=== PATIENT | male | born 1965 | race African-American/Black ===

== ENCOUNTER 2016-05-22 13:02 | Inpatient (IN) | payer OTHER ==
[2016-05-22] VITALS (8 sets, daily range): BP systolic 129–159; BP diastolic 82–97; PULSE 20–94; RESP 14–24; TEMP 98.2–99.6; O2SAT 93–98
[~2016-05-22] VITALS: Ht 177.8 cm; Wt 96.0 kg
[2016-05-22] MEDS ORDERED: SODIUM CHLOR 0.9% 1000 ML INJ 1,000 ML IV SCH (13:29)
--- NOTE | 2016-05-22 13:29 | PD ---
HPI Chief Complaint: GI Complaint Time Seen by Provider: 13:28 Travel History International Travel<30 days: No Contact w/Intl Traveler<30days: No Traveled to known affect area: No History of Present Illness HPI 50-year-old Afro-[place]ese male coming in with 3 day history of right upper quadrant pain, cramping, nausea, vomiting, but denies fever, chills, or diarrhea. Patient still has his gallbladder but denies hepatitis or pancreatitis in the past. Patient does drink 2 to 3 beers occasionally, but is not a regular drinker. Patient has had abdominal surgery for umbilical hernia only. He still has his gallbladder and appendix. Patient denies chest pain or shortness of breath. No cough or wheezing. Pain is localized to the right upper quadrant is a 10 out of 10 at this time. Patient states she's tried eat some Jell-O but nothing stays down and pain is worse after eating. He denies blood in his emesis. He states his urine is darker than normal. He is not having regular bowel movements in the last 2 days. Patient states he's had attacks like this in the past, and they usually last 2- 3 days and then past. Patient states he's had endoscopies, colonoscopies, and CT scans in the past. Patient states he's been evaluated by a GI specialist when he was living in [place]. No specific explanation has been found in the past. Patient states no known drug allergies. [facility] Social History Alcohol Use: Yes Tobacco Use: Yes Substance Use: No Allergies-Medications (Allergen,Severity, Reaction): Coded Allergies: No Known Allergies (Unverified , 05/22/16) Review of Systems Except as stated in HPI: all other systems reviewed are Neg General / Constitutional: Positive: Chills, No: Fever Eyes: No: Visual changes HENT: No: Headaches Cardiovascular: No: Chest Pain or Discomfort Respiratory: No: Shortness of Breath Gastrointestinal: Positive: Nausea, Vomiting, Diarrhea, Abdominal Pain, Loss of Appetite (see history present illness.), No: Hematemesis, Hematochezia, Constipation, Changes in Bowel Habits, Indigestion, Dysphagia Genitourinary: No: Dysuria Musculoskeletal: No: Pain Skin: No Rash Neurologic: No: Weakness Psychiatric: No: Depression Endocrine: No: Polydipsia Hematologic/Lymphatic: No: Easy Bruising Physical Exam Narrative GENERAL: Patient is in moderate to severe distress, holding his right upper quadrant and writhing on the bed. SKIN: Warm and dry. Normal color. Normal turgor. No diaphoresis. HEAD: Atraumatic. Normocephalic. EYES: Pupils equal and round. No scleral icterus. No injection or drainage. ENT: No nasal bleeding or discharge. Mucous membranes pink and moist. Patient is edentulous, and pharynx is normal. Airway is patent. NECK: Trachea midline. Neck is supple nontender. CARDIOVASCULAR: Regular rate and rhythm. No murmurs gallops or rubs. RESPIRATORY: No accessory muscle use. Clear to auscultation. Breath sounds equal bilaterally. GASTROINTESTINAL: Abdomen soft, patient is guarding in the right upper quadrant with moderate to severe tenderness with palpation and percussion., nondistended. Hepatic and splenic margins not palpable. No CVA tenderness is noted. MUSCULOSKELETAL: Extremities without clubbing, cyanosis, or edema. No obvious deformities. NEUROLOGICAL: Awake and alert. No obvious cranial nerve deficits. Motor grossly within normal limits. Five out of 5 muscle strength in the arms and legs. Normal speech. PSYCHIATRIC: Appropriate mood and affect; insight and judgment normal. Data Data Last Documented VS Vital Signs Date Time Temp Pulse Resp B/P Pulse Ox O2 Delivery O2 Flow Rate FiO2 05/22/16 16:00 72 15 137/85 95 Room Air 05/22/16 13:58 2 05/22/16 13:03 98.2 Orders Complete Blood Count With Diff (05/22/16 13:29) Comprehensive Metabolic Panel (05/22/16 13:29) Lipase (05/22/16 13:29) Lactic Acid (05/22/16 13:29) Prothrombin Time / Inr (Pt) (05/22/16 13:29) Act Partial Throm Time (Ptt) (05/22/16 13:29) Urinalysis - C+S If Indicated (05/22/16 13:29) Iv Access Insert/Monitor (05/22/16 13:29) Ecg Monitoring (05/22/16 13:29) Oximetry (05/22/16 13:29) NPO (05/22/16 13:29) Morphine Inj (Morphine Inj) (05/22/16 13:30) Ondansetron Inj (Zofran Inj) (05/22/16 13:30) Sodium Chlor 0.9% 1000 Ml Inj (Ns 1000 M (05/22/16 13:29) Sodium Chloride 0.9% Flush (Ns Flush) (05/22/16 13:30) Electrocardiogram (05/22/16 13:29) Ckmb (Isoenzyme) Profile (05/22/16 15:38) Magnesium (Mg) (05/22/16 15:38) Troponin I (05/22/16 15:38) Us Abdomen Gallbladder (05/22/16 15:41) Sodium Chlor 0.9% 1000 Ml Inj (Ns 1000 M (05/22/16 16:00) CKMB (05/22/16 14:30) CKMB% (05/22/16 14:30) Ct Abd/Pel W/O Iv Contrast (05/22/16 16:32) Morphine Inj (Morphine Inj) (05/22/16 17:45) Admit Order (Ed Use Only) (05/22/16 17:52) Labs Laboratory Tests Test 05/22/16 05/22/16 13:42 14:30 White Blood Count 15.0 TH/MM3 Red Blood Count 6.21 MIL/MM3 Hemoglobin 17.1 GM/DL Hematocrit 50.5 % Mean Corpuscular Volume 81.2 FL Mean Corpuscular Hemoglobin 27.6 PG Mean Corpuscular Hemoglobin 33.9 % Concent Red Cell Distribution Width 15.5 % Platelet Count 329 TH/MM3 Mean Platelet Volume 7.7 FL Neutrophils (%) (Auto) 84.2 % Lymphocytes (%) (Auto) 8.6 % Monocytes (%) (Auto) 6.7 % Eosinophils (%) (Auto) 0.1 % Basophils (%) (Auto) 0.4 % Neutrophils # (Auto) 12.6 TH/MM3 Lymphocytes # (Auto) 1.3 TH/MM3 Monocytes # (Auto) 1.0 TH/MM3 Eosinophils # (Auto) 0.0 TH/MM3 Basophils # (Auto) 0.1 TH/MM3 CBC Comment DIFF FINAL Differential Comment Lactic Acid Level 1.6 mmol/L Prothrombin Time 11.9 SEC Prothromb Time International 1.1 RATIO Ratio Activated Partial 27.8 SEC Thromboplast Time Sodium Level 133 MEQ/L Potassium Level 5.1 MEQ/L Chloride Level 92 MEQ/L Carbon Dioxide Level 33.8 MEQ/L Anion Gap 7 MEQ/L Blood Urea Nitrogen 40 MG/DL Creatinine 2.59 MG/DL Estimat Glomerular Filtration 32 ML/MIN Rate Random Glucose 104 MG/DL Calcium Level 9.2 MG/DL Magnesium Level 2.6 MG/DL Total Bilirubin 0.7 MG/DL Aspartate Amino Transf 31 U/L (AST/SGOT) Alanine Aminotransferase 28 U/L (ALT/SGPT) Alkaline Phosphatase 90 U/L Total Creatine Kinase 533 U/L Creatine Kinase MB 1.5 NG/ML Creatine Kinase MB % 0.3 % Troponin I LESS THAN 0.02 NG/ML Total Protein 8.5 GM/DL Albumin 4.1 GM/DL Lipase 195 U/L MDM Medical Decision Making Medical Screen Exam Complete: Yes Emergency Medical Condition: Yes Differential Diagnosis Acute right upper quadrant pain. Hepatitis. Pancreatitis. Acute cholecystitis. Renal colic. Small bowel obstruction. Narrative Course Patient is in pain but medically stable at time of exam. EKG is obtained. EKG shows sinus rhythm with sinus arrhythmia. Patient is nonspecific ST T wave abnormalities. This is reviewed with Dr. Kilgore. This is a non-STEMI. We do not have other EKG to compare. This may be his baseline. IV access is obtained patient is given 4 mg morphine IV as well as 4 mg Zofran IV. Labs ordered including CBC, CMP, lactic acid, lipase, and urinalysis. Patient is given thousand mL normal saline bolus. CT of the abdomen is ordered with IV contrast but without oral contrast. 1400 hrs., the patient was reevaluated. Pain is improved, down to a 3 out of 10. Labs and CT still pending. Labs show leukocytosis of 15,000 with a right shift. CMP shows normal lactic acid of 1.6, however sodium is 133, chloride is 92, BUN is 40, creatinine is 2.59. Patient is discussed with Dr. Kilgore who recommends CT of the abdomen without contrast, as well as ultrasound of the gallbladder. Ultrasound shows sludge in the gallbladder without acute findings otherwise per radiologist. CT of the abdomen shows umbilical hernia without signs of obstruction. No other acute findings noted per radiologist. 1735 hrs. Call was placed to the residence for admission for his increased creatinine and abdominal pain. It is notable that the patient has not produced urine since arriving at the emergency department. 1750 hrs. patient discussed with the residents who admit the patient. Diagnosis Primary Impression: Elevated serum creatinine Additional Impressions: Nausea & vomiting Qualified Code: R11.2 - Non-intractable vomiting with nausea, unspecified vomiting type Abdominal pain Qualified Code: R10.11 - Right upper quadrant abdominal pain Admitting Information Admitting Physician Requests: Observation Condition: Stable Catrachito Vargas May 22, 2016 13:29
[2016-05-22] MEDS ORDERED: MORPHINE SULFATE 4 MG/ML INJ IV PUSH ONE (13:30)
[2016-05-22] MEDS ORDERED: ONDANSETRON HCL 4 MG/2 ML VIAL IVP ONE (13:30)
[2016-05-22] MEDS ORDERED: SODIUM CHLORIDE 0.9% FLUSH 5 ML FLUSH IVF PRN (13:30)
[2016-05-22 13:57] LABS: AUTOMATED NEUTROPHIL # 12.6 TH/MM3 (1.8-7.7); BASOPHIL # 0.1 TH/MM3 (0-0.2); BASOPHIL % 0.4 % (0.0-2.0); EOSINOPHIL % 0.1 % (0.0-4.0); HEMATOCRIT 50.5 % (39.0-51.0); HEMO FLAGS DIFF FINAL; LYMPH % 8.6 % (9.0-44.0); LYMPHOCYTE # 1.3 TH/MM3 (1.0-4.8); MEAN CELL VOLUME 81.2 FL (80.0-100.0); MEAN CORPUSCULAR HEMOGLOBIN 27.6 PG (27.0-34.0); MEAN CORPUSCULAR HGB CONC 33.9 % (32.0-36.0); MONO % 6.7 % (0.0-8.0); NEUT % 84.2 % (16.0-70.0); PLATELET COUNT 329 TH/MM3 (150-450); RED BLOOD COUNT 6.21 MIL/MM3 (4.50-5.90); RED CELL DISTRIBUTION WIDTH 15.5 % (11.6-17.2)
[2016-05-22 14:13] LABS: TOTAL BILIRUBIN ADULT 0.7 MG/DL (0.2-1.0)
[2016-05-22 15:09] LABS: APTT (PATIENT) 27.8 SEC (24.3-30.1); INTERNATIONAL NORMALIZED RATIO 1.1 RATIO; PROTHROMBIN TIME - PATIENT 11.9 SEC (9.8-11.6)
[2016-05-22 15:32] LABS: ALT (GPT) 28 U/L (12-78); ANION GAP 7 MEQ/L (5-15); AST (GOT) 31 U/L (15-37); BICARBONATE 33.8 MEQ/L (21.0-32.0); BLOOD UREA NITROGEN 40 MG/DL (7-18); CHLORIDE 92 MEQ/L (98-107); GLOMERULAR FILTRATION RATE 32 ML/MIN (>89); POTASSIUM 5.1 MEQ/L (3.5-5.1); SODIUM (NA) 133 MEQ/L (136-145)
[2016-05-22 15:33] LABS: ALKALINE PHOSPHATASE 90 U/L (45-117)
[2016-05-22] MEDS ORDERED: SODIUM CHLOR 0.9% 1000 ML INJ 1,000 ML IV ONE (16:00)
[2016-05-22 16:31] LABS: CREATINE KINASE 533 U/L (39-308); MAGNESIUM 2.6 MG/DL (1.5-2.5)
[2016-05-22 16:44] LABS: CKMB 1.5 NG/ML (0.5-3.6)
--- NOTE | 2016-05-22 17:14 | RADRPT ---
EXAM DATE/TIME: 05/22/2016 16:14 [facility] COMPARISON: No previous studies available for comparison. INDICATIONS : Nausea and vomiting. MEDICAL HISTORY : Hypertension. SURGICAL HISTORY : Hernia repair. ENCOUNTER: Initial ACUITY: 2 days PAIN SCORE: 8/10 LOCATION: Right upper quadrant MEASUREMENTS: LIVER: 16.8 cm length COMMON DUCT: 5 mm RIGHT KIDNEY: 11.1 x 5.6 x 4.5 cm FINDINGS: LIVER: Normal echotexture without focal lesion or ductal dilatation. COMMON DUCT: No intraluminal mass or stone visualized. GALLBLADDER: Small amount of sludge in the gallbladder. PANCREAS: The visualized portions are within normal limits. RIGHT KIDNEY: No evidence of hydronephrosis, stone, or mass. CONCLUSION: 1. Gallbladder sludge without biliary ductal dilatation. No free fluid. Jeff Vera MD on May 22, 2016 at 17:11 Board Certified Radiologist. This report was verified electronically.
--- NOTE | 2016-05-22 17:24 | RADRPT ---
EXAM DATE/TIME: 05/22/2016 16:52 [facility] COMPARISON: No previous studies available for comparison. INDICATIONS : Abdomen pain. ORAL CONTRAST: No oral contrast ingested. RADIATION DOSE: 9.96 CTDIvol (mGy) MEDICAL HISTORY : Hypertension. SURGICAL HISTORY : Hernia repair. ENCOUNTER: Initial ACUITY: 1 day PAIN SCALE: 5/10 LOCATION: Bilateral abdomen. TECHNIQUE: Volumetric scanning of the abdomen and pelvis was performed. Using automated exposure control and ad justment of the mA and/or kV according to patient size, radiation dose was kept as low as reasonably achievable to obtain optimal diagnostic quality images. FINDINGS: There is linear atelectasis or scarring at both lung bases. No significant abnormalities in the liver , spleen, adrenals, kidneys or pancreas. No free fluid. No bowel obstruction. No adenopathy. There is a fat containing umbilical hernia measuring 3.5 cm in diameter. No acute bony abnormalities. CONCLUSION: 1. No acute findings. Fat containing umbilical hernia measuring 3.5 cm in diameter. Linear atelectasi s or scarring at the lung bases. Jeff Vera MD on May 22, 2016 at 17:18 Board Certified Radiologist. This report was verified electronically.
[2016-05-22] MEDS ORDERED: MORPHINE SULFATE 4 MG/ML INJ IM ONE (17:45)
[2016-05-22] MEDS ORDERED: NALOXONE HCL 0.4 MG/ML AMP IV PRN (18:15)
[2016-05-22] MEDS ORDERED: SODIUM CHLORIDE 0.9% FLUSH 5 ML FLUSH FLUSH PRN (18:15)
[2016-05-22] MEDS ORDERED: ACETAMINOPHEN/HYDROcodone 325 MG/5 MG TAB PO PRN ×2 (18:15)
[2016-05-22] MEDS ORDERED: ACETAMINOPHEN 325 MG TAB PO PRN (18:15)
[2016-05-22] MEDS ORDERED: ONDANSETRON HCL 4 MG/2 ML VIAL IVP PRN (18:15)
[2016-05-22] MEDS: SODIUM CHLOR 0.9% 1000 ML INJ 1,000 ML IV SCH (18:30)
--- NOTE | 2016-05-22 18:37 | HHI.HP ---
[facility] Service Family Medicine Primary Care Physician [facility] Admission Diagnosis Elevated Creatinine/Nausea/Vomiting/R upper Abd pain Diagnoses: International Travel<30 Days: No Contact w/Intl Traveler<30days: No Known Affected Area: No History of Present Illness Patient is a 50-year-old male with past medical history significant for COPD and hypertension presenting due to abdominal pain, intractable nausea and vomiting. Patient reports that he began to experience abdominal pain on Monday located in the right upper quadrant. Pain is is terminated, 10 out of 10 in intensity with no radiation. He describes the pain as cramping, muscle spasms. Pain was only relieved by pain medication in the ED , and made worse by vomiting. He believes that vomiting and abdominal pain improves when he takes a hot shower. Vomit has been light yellow in color with occasional streaks of blood. He denies gross bloody appearance of vomit. Since Monday he has not been able to tolerate anything PO, anything he would eat or drink would cause him to vomit. He is not sure if any types of food made the pain worse. He has tried eating bland soft foods and this has not helped. He had a soft bowel movement yesterday. Denies constipation, diarrhea. The last time he urinated was yesterday. He has had similar episodes of pain in the past but they are usually associated with eating. The onset of this pain was different; however, the symptoms are the same. He has been evaluated for this same type of pain in several different hospitals in different states. He denies ever being given a specific diagnosis. He denies history of liver disease, gallbladder disease, kidney disease. He reports being previously told that he has a hiatal hernia as well as an ulcer. (Landy Harris MD R2) Review of Systems Constitutional: COMPLAINS OF: Fever, Chills Eyes: COMPLAINS OF: Vision loss Ears, nose, mouth, throat: COMPLAINS OF: Throat pain (sore throat with vomiting ) Respiratory: DENIES: Cough, Shortness of breath Cardiovascular: DENIES: Chest pain Gastrointestinal: DENIES: Bloody stools, Constipation Genitourinary: DENIES: Urinary frequency Musculoskeletal: COMPLAINS OF: Muscle aches Integumentary: DENIES: Pruritus, Rash Neurologic: COMPLAINS OF: Headache (Landy Harris MD R2) Past Family Social History Past Medical History Asthma HTN Past Surgical History Umbilical hernia operations x2 Skull fracture repair Reported Medications HCTZ Proventil HFA inhaler (Landy Harris MD R2) Allergies: Coded Allergies: No Known Allergies (Unverified , 05/22/16) Family History Mother: CHF, 60s Father: Unknown Social History Currently lives in [facility] in an apartment. Works in [employer]. Smokes 1PPD for 37 years. Alcohol 1 beer per day, denies withdrawal symptoms Marijuana about 2x per week. (Landy Harris MD R2) Physical Exam Vital Signs Vital Signs Date Time Temp Pulse Resp B/P Pulse Ox O2 Delivery O2 Flow Rate FiO2 05/22/16 17:56 99.6 74 14 134/86 96 Nasal Cannula 2 05/22/16 16:00 72 15 137/85 95 Room Air 05/22/16 13:58 93 24 135/87 96 Nasal Cannula 2 05/22/16 13:38 98 Room Air 05/22/16 13:34 17 05/22/16 13:03 98.2 94 20 159/97 96 Physical Exam GENERAL: This is a well-nourished, well-developed patient, in no apparent distress. Pt wearing Nasal canula, 2L. SKIN: No rashes, ecchymoses or lesions. Cool and dry. HEAD: Atraumatic. Normocephalic. No temporal or scalp tenderness. EYES: Pupils equal round and reactive. Extraocular motions intact. No scleral icterus. No injection or drainage. ENT: Nose without bleeding, purulent drainage or septal hematoma. Throat without erythema, tonsillar hypertrophy or exudate. Uvula midline. Airway patent. Pt with no teeth. NECK: Trachea midline. No JVD or lymphadenopathy. Supple, nontender, no meningeal signs. CARDIOVASCULAR: Regular rate and rhythm without murmurs, gallops, or rubs. RESPIRATORY: Clear to auscultation. Breath sounds equal bilaterally. Decreased breath sounds at lung bases. No wheezes, rales, or rhonchi. GASTROINTESTINAL: Abdomen soft, obese, nondistended. No hepato-splenomegaly, or palpable masses. No guarding. Pain with palpation of right upper and lower quadrants. Positive Rivera sign. Positive bowel sounds. MUSCULOSKELETAL: Extremities without clubbing, cyanosis, or edema. No joint tenderness, effusion, or edema noted. No calf tenderness. Negative Homans sign bilaterally. NEUROLOGICAL: Awake and alert. Cranial nerves II through XII intact. Motor and sensory grossly within normal limits. Five out of 5 muscle strength in all muscle groups. Normal speech. Laboratory Laboratory Tests Test 05/22/16 05/22/16 13:42 14:30 White Blood Count 15.0 Red Blood Count 6.21 Hemoglobin 17.1 Hematocrit 50.5 Mean Corpuscular Volume 81.2 Mean Corpuscular Hemoglobin 27.6 Mean Corpuscular Hemoglobin 33.9 Concent Red Cell Distribution Width 15.5 Platelet Count 329 Mean Platelet Volume 7.7 Neutrophils (%) (Auto) 84.2 Lymphocytes (%) (Auto) 8.6 Monocytes (%) (Auto) 6.7 Eosinophils (%) (Auto) 0.1 Basophils (%) (Auto) 0.4 Neutrophils # (Auto) 12.6 Lymphocytes # (Auto) 1.3 Monocytes # (Auto) 1.0 Eosinophils # (Auto) 0.0 Basophils # (Auto) 0.1 CBC Comment DIFF FINAL Differential Comment Lactic Acid Level 1.6 Prothrombin Time 11.9 Prothromb Time International 1.1 Ratio Activated Partial 27.8 Thromboplast Time Sodium Level 133 Potassium Level 5.1 Chloride Level 92 Carbon Dioxide Level 33.8 Anion Gap 7 Blood Urea Nitrogen 40 Creatinine 2.59 Estimat Glomerular Filtration 32 Rate Random Glucose 104 Calcium Level 9.2 Magnesium Level 2.6 Total Bilirubin 0.7 Aspartate Amino Transf 31 (AST/SGOT) Alanine Aminotransferase 28 (ALT/SGPT) Alkaline Phosphatase 90 Total Creatine Kinase 533 Creatine Kinase MB 1.5 Creatine Kinase MB % 0.3 Troponin I LESS THAN 0.02 Total Protein 8.5 Albumin 4.1 Lipase 195 (Landy Harris MD R2) Result Diagram: 05/22/16 1342 05/22/16 1430 Imaging Last 24 hours Impressions Abdomen/Pelvis CT 05/22/16 1632 Signed Impressions: Service Date/Time: Sunday, May 22, 2016 16:52 - CONCLUSION: 1. No acute findings. Fat containing umbilical hernia measuring 3.5 cm in diameter. Linear atelectasis or scarring at the lung bases. Jeff Vera MD Gall Bladder Ultrasound 05/22/16 1541 Signed Impressions: Service Date/Time: Sunday, May 22, 2016 16:14 - CONCLUSION: 1. Gallbladder sludge without biliary ductal dilatation. No free fluid. Jeff Vera MD (Landy Harris MD R2) Assessment and Plan Assessment and Plan Patient is a 50-year-old male with past medical history significant for COPD and hypertension presenting due to abdominal pain, intractable nausea and vomiting. Code Status Full Discussed Condition With sdw Dr. Miller (Landy Harris MD R2) Attending Attestation THIS CASE WAS DISCUSSED WITH THE RESIDENT PHYSICIANS. I HAVE REVIEWED THE RECORD AND AGREE WITH THE ABOVE NOTE AND PLAN OF CARE WAS DISCUSSED. I HAVE AUTHORIZED THE ORDER FOR ADMISSION TO AN IN-PATIENT STATUS. (Jordan Saini MD) Problem List: (1) Abdominal pain Status: Acute Plan: Patient with right-sided abdominal pain that has persisted since Monday. On exam patient with positive Rivera sign. On this occasion, pain is not associated with eating. In the past patient reports that similar episodes have been associated with eating. -HIDA scan ordered to evaluate for gallbladder dysmotility, no morphine to be administered 4 hours prior to the study Medications [place] 12 tabs prn pain 710, morphine prn breakthrough Zofran prn nausea or vomiting Protonix Imaging Abdominal CT scan: No acute findings, fat containing umbilical hernia measuring 3.5 cm in diameter. Linear atelectasis or scarring of the lung bases. Gallbladder ultrasound: Gallbladder sludge without biliary duct dilation. No free fluid (2) Elevated serum creatinine Status: Acute Plan: On admission creatinine elevated to 2.59. Patient denies prior history of kidney disease. Likely due to dehydration as patient reports being unable to tolerate eating or drinking for the past 3 days, and decreased urine output. History is also significant for marijuana use and possibly use of other illicit substances. -Fluids as below -UDS pending -UA ordered -Continue to monitor for improvement -Consider renal ultrasound if creatinine does not improve with IV fluids (3) Nausea & vomiting Status: Acute Plan: Patient reports intractable nausea and vomiting since Monday. He has not been able to tolerate anything po since this time. -See fluids below -Zofran PRN nausea or vomiting -Patient reports that he is hungry and would like to try to eat something, reassuring -Cyclic vomiting syndrome is very likely due to patient's regular use of marijuana. (4) Leukocytosis Status: Acute Plan: On admission patient with elevated white blood cell count of 15. Patient is afebrile and vital signs are stable. -UA ordered -No source of infection identified at this time -Consider chest x-ray -Continue to monitor (5) FEN/PPX Status: Acute Plan: Fluids: Patient received 1 L bolus 2 while in the ED, will continue fluids at 130 mls/hr Electrolytes: Sodium low at 133, see fluids above. Magnesium slightly elevated at 2.6. Continue to monitor and replete as needed. Nutrition: Heart healthy diet DVT PPX: Heparin GI PPX: Protonix Chronic conditions: Hypertension, hydrochlorothiazide 12.5 mg po daily Asthma, pro-air inhaler (Landy Harris MD R2) Problem Qualifiers (1) Abdominal pain: Qualified Code: R10.11 - Right upper quadrant abdominal pain (2) Nausea & vomiting: Qualified Code: R11.2 - Non-intractable vomiting with nausea, unspecified vomiting type Landy Harris MD R2 May 22, 2016 18:37 Jordan Saini MD May 23, 2016 16:09
[2016-05-22] MEDS: MORPHINE SULFATE 4 MG/ML INJ IV PUSH PRN ×2 (18:44→22:52)
[2016-05-22] MEDS: HEPARIN SODIUM - SQ 10,000 UNITS/ML VIAL SQ SCH (20:51)
[2016-05-22] MEDS: SODIUM CHLORIDE 0.9% FLUSH 5 ML FLUSH FLUSH SCH (20:51)
[2016-05-22] MEDS ORDERED: ALBUTEROL SULFATE 90 MCG/ACT HFA 8 GM INHALER INH PRN (22:30)
[2016-05-23] MEDS ORDERED: MORPHINE SULFATE 4 MG/ML INJ IV PUSH PRN (00:15)
[2016-05-23 01:52] VITALS: BP 129/88; PULSE 69; RESP 18; TEMP 97.8; O2SAT 93
[2016-05-23] MEDS: SODIUM CHLOR 0.9% 1000 ML INJ 1,000 ML IV SCH ×3 (03:11→18:38)
[2016-05-23 05:30] LABS: AUTOMATED NEUTROPHIL # 7.1 TH/MM3 (1.8-7.7); BASOPHIL % 0.3 % (0.0-2.0); EOSINOPHIL # 0.1 TH/MM3 (0-0.4); HEMATOCRIT 41.7 % (39.0-51.0); HEMO FLAGS DIFF FINAL; LYMPH % 22.5 % (9.0-44.0); LYMPHOCYTE # 2.5 TH/MM3 (1.0-4.8); MEAN CORPUSCULAR HEMOGLOBIN 27.3 PG (27.0-34.0); MEAN CORPUSCULAR HGB CONC 32.9 % (32.0-36.0); MONO % 11.9 % (0.0-8.0); NEUT % 64.3 % (16.0-70.0); PLATELET COUNT 270 TH/MM3 (150-450); RED BLOOD COUNT 5.03 MIL/MM3 (4.50-5.90); RED CELL DISTRIBUTION WIDTH 15.2 % (11.6-17.2); WHITE BLOOD COUNT 11.1 TH/MM3 (4.0-11.0)
[2016-05-23] MEDS: HEPARIN SODIUM - SQ 10,000 UNITS/ML VIAL SQ SCH ×2 (05:50→13:00)
[2016-05-23 06:02] LABS: BICARBONATE 32.5 MEQ/L (21.0-32.0)
[2016-05-23 06:13] LABS: POTASSIUM 2.8 MEQ/L (3.5-5.1)
[2016-05-23 06:15] VITALS: BP 114/75; PULSE 58; RESP 18; TEMP 97.7; O2SAT 94
[2016-05-23] MEDS ORDERED: POTASSIUM CHLORIDE 20 MEQ CONTROLLED RELEASE TAB PO ONE ×2 (06:30→12:30)
[2016-05-23 08:00] VITALS: BP 115/72; PULSE 59; RESP 20; TEMP 98.3; O2SAT 91
[2016-05-23] MEDS: SODIUM CHLORIDE 0.9% FLUSH 5 ML FLUSH FLUSH SCH (08:00)
[2016-05-23] MEDS ORDERED: CALCIUM CARBONATE 500 MG CHEWABLE TAB CHEW SCH (09:00)
[2016-05-23] MEDS ORDERED: PANTOPRAZOLE SOD 20 MG DELAYED RELEASE TAB PO SCH (09:00)
[2016-05-23] MEDS ORDERED: HYDROCHLOROTHIAZIDE 12.5 MG CAP PO SCH (09:00)
[2016-05-23 09:45] VITALS: O2SAT 92
[2016-05-23] MEDS ORDERED: SINCALIDE 5 MCG/5 ML VIAL IV ONE (11:11)
--- NOTE | 2016-05-23 11:52 | EKG ---
Date Performed: 05/22/2016 Time Performed: 13:31:27 PTAGE: 50 years EKG: Sinus rhythm WITH MARKED SINUS ARRHYTHMIA NONSPECIFIC ST & T-WAVE ABNORMALITY BORDERLINE ECG NO PREVIOUS TRACING DOCTOR: Newton Garland Interpretating Date/Time 05/23/2016 11:46:55
[2016-05-23 12:00] VITALS: BP 136/58; PULSE 55; RESP 20; TEMP 98.9; O2SAT 94
--- NOTE | 2016-05-23 13:11 | RADRPT ---
EXAM DATE/TIME: 05/23/2016 09:56 [facility] COMPARISON: No previous studies available for comparison. INDICATIONS : Right upper quadrant pain, nausea and vomiting for 3 days. DOSE: 4.2 mCi Tc99m Mebrofenin IV MEDICATION: 1.92 mcg Cholecystokinin IV; No symptomatic response. Cholecystokinin was administered by slow infusion over 8 minutes beginning at 60 minutes. MEDICAL HISTORY : Hypertension. SURGICAL HISTORY : Hernia repair. ENCOUNTER: Initial ACUITY: 3 days PAIN SCALE: 10/10 LOCATION: Right upper quadrant TECHNIQUE: Following the intravenous administration of radiotracer, dynamic sequential image were performed with continuous acquisition. Time-activity curves were generated. FINDINGS: There is prompt extraction of radiotracer with activity seen the common duct and small bowel in 20 m inutes. Gallbladder does appear at 30 minutes. With intravenous administration of CCK there is prompt emptying of the gallbladder with ejection frac tion of greater than 50%. CONCLUSION: Negative for cystic duct or common duct obstruction Yony Monzon MD FACR on May 23, 2016 at 13:08 Board Certified Radiologist. This report was verified electronically.
[2016-05-23 16:00] VITALS: BP 128/74; PULSE 77; RESP 20; TEMP 99.1; O2SAT 97
--- NOTE | 2016-05-23 16:08 | HHI.FPPN ---
Subjective Remarks No acute events overnight. Patient tolerated a meal yesterday evening without significant discomfort or nausea/vomiting. He had his HIDA scan today that came back normal, with normal gallbladder filling and gallbladder ejection fraction of greater than 50%. He is extremely hungry at this time and just ordered a diet, and is going to attempt to eat lunch right now. He feels that he is back to his baseline. Right now he denies any symptoms such as abdominal pain, denies nausea, denies vomiting, denies chest pain or palpitations. In summary this is a 50-year-old male presenting to the emergency department with abdominal pain and nausea/vomiting. Pain started 2 days prior to arrival in the emergency department and describes it as a sharp, stabbing pain in the right upper quadrant. He feels that it is a "cramping" sensation and that the only thing that made it better was pain medication in the emergency department. He did not associate this with eating or with food. He denies any fevers or chills. He denies any hematemesis. He denies any constipation or diarrhea. He denies any chest pain or palpitations. He states that he has a chronic history of abdominal pain that has been evaluated several times in the emergency department and several different hospitals with no clear-cut diagnosis. Past Medical History Asthma HTN Past Surgical History Umbilical hernia operations x2 Skull fracture repair Reported Medications HCTZ Proventil HFA inhaler Allergies: Coded Allergies: No Known Allergies (Unverified , 05/22/16) Family History Mother: CHF, 60s Father: Unknown Social History Currently lives in [facility] in an apartment. Works in [employer]. Smokes 1PPD for 37 years. Alcohol 1 beer per day, denies withdrawal symptoms Marijuana about 2x per week. Objective Vitals Vital Signs Date Time Temp Pulse Resp B/P Pulse Ox O2 Delivery O2 Flow Rate FiO2 05/23/16 12:00 98.9 55 20 136/58 94 05/23/16 09:45 92 05/23/16 08:00 98.3 59 20 115/72 91 05/23/16 06:15 97.7 58 18 114/75 94 05/23/16 01:52 97.8 69 18 129/88 93 05/22/16 20:44 98.2 64 18 148/82 93 05/22/16 20:26 65 18 129/88 95 Room Air 05/22/16 20:10 96 Nasal Cannula 2.00 05/22/16 17:56 99.6 74 14 134/86 96 Nasal Cannula 2 05/22/16 16:00 72 15 137/85 95 Room Air I/O 05/22/16 05/22/16 05/22/16 05/23/16 05/23/16 05/23/16 07:00 15:00 23:00 07:00 15:00 23:00 Intake Total 480 ml Balance 480 ml Intake Oral 480 ml Result Diagram: 05/23/16 0449 05/23/16 0449 Imaging Last 48 hours Impressions Hepatobiliary Scan Nuclear Medicine 05/23/16 1913 Signed Impressions: Service Date/Time: Monday, May 23, 2016 09:56 - CONCLUSION: Negative for cystic duct or common duct obstruction Yony Monzon MD FACR Abdomen/Pelvis CT 05/22/16 1632 Signed Impressions: Service Date/Time: Sunday, May 22, 2016 16:52 - CONCLUSION: 1. No acute findings. Fat containing umbilical hernia measuring 3.5 cm in diameter. Linear atelectasis or scarring at the lung bases. Jeff Vera MD Gall Bladder Ultrasound 05/22/16 1541 Signed Impressions: Service Date/Time: Sunday, May 22, 2016 16:14 - CONCLUSION: 1. Gallbladder sludge without biliary ductal dilatation. No free fluid. Jeff Vera MD Objective Remarks GENERAL: This is a well-nourished, well-developed patient, in no apparent distress. SKIN: No rashes, ecchymoses or lesions. Cool and dry. ENT: Throat without erythema, tonsillar hypertrophy or exudate. Uvula midline. Airway patent. Pt with no teeth. NECK: Trachea midline. No JVD or lymphadenopathy. Supple, nontender, no meningeal signs. CARDIOVASCULAR: Regular rate and rhythm without murmurs, gallops, or rubs. RESPIRATORY: Clear to auscultation. Breath sounds equal bilaterally. Decreased breath sounds at lung bases. No wheezes, rales, or rhonchi. GASTROINTESTINAL: Abdomen soft, obese, nondistended. No hepato-splenomegaly, or palpable masses. No guarding. Negative Rivera sign at this time MUSCULOSKELETAL: Extremities without clubbing, cyanosis, or edema. NEUROLOGICAL: Awake and alert. Normal speech. A/P Assessment and Plan Patient is a 50-year-old male with past medical history significant for COPD and hypertension presenting due to abdominal pain, intractable nausea and vomiting. Discharge Planning Likely discharge today if patient tolerates diet and potassium improves. Problem List: (1) Abdominal pain Status: Acute Plan: Chronic, intermittent abdominal pain with no clear etiology Pain controlled with pain medications including [place] and morphine Patient now tolerating a regular diet Continue Zofran as needed for nausea HIDA scan performed that showed no gallbladder or ductal obstruction with a gallbladder ejection fraction of greater than 50% Abdominal CT scan: No acute findings, fat containing umbilical hernia measuring 3.5 cm in diameter. Linear atelectasis or scarring of the lung bases. Gallbladder ultrasound: Gallbladder sludge without biliary duct dilation. No free fluid Lab work remarkable for a [employer] and hypokalemia LFTs within normal limits No evidence of infection or gallbladder obstruction (2) Elevated serum creatinine Status: Acute Plan: Likely prerenal with decreased oral intake and losses due to vomiting - Creatinine improved to 1.81 today with IV hydration - Continue hydration with oral intake improving Follow-up BMP as an outpatient (3) Nausea & vomiting Status: Acute Plan: Currently tolerating a regular diet without use of nausea or vomiting -Zofran PRN nausea or vomiting -Cyclic vomiting syndrome is very likely due to patient's regular use of marijuana. (4) Leukocytosis Status: Acute Plan: On admission patient with elevated white blood cell count of 15 - improved today to 11.1. Patient is afebrile and vital signs are stable. -UA negative for infection -No source of infection identified at this time (5) Hypokalemia Status: Acute Plan: Likely secondary to losses with vomiting Replenished with 40 mEq 2 oral potassium this morning Repeat BMP pending (6) FEN/PPX Status: Acute Plan: Fluids: Patient received 1 L bolus 2 while in the ED, will continue fluids at 130 mls/hr Electrolytes: Sodium low at 133, see fluids above. Magnesium slightly elevated at 2.6. Continue to monitor and replete as needed. Nutrition: Heart healthy diet DVT PPX: Heparin GI PPX: Protonix Chronic conditions: Hypertension, hydrochlorothiazide 12.5 mg po daily Asthma, pro-air inhaler Problem Qualifiers (1) Abdominal pain: Qualified Code: R10.11 - Right upper quadrant abdominal pain (2) Nausea & vomiting: Qualified Code: R11.2 - Non-intractable vomiting with nausea, unspecified vomiting type Jordan Saini MD May 23, 2016 16:08
[2016-05-23] MEDS ORDERED: ZOFR4TAB3 SL (17:00)
--- NOTE | 2016-05-23 17:01 | HHI.DCPOC ---
Discharge Care Plan Diagnosis: (1) Nausea & vomiting (2) Hypokalemia (3) Dehydration Goals to Promote Your Health * To prevent worsening of your condition and complications, avoid marijuana. Take medication as prescribed for nausea and/or vomiting. Take over the counter pain medication as needed without exceeding recommended dosage. * To maintain your health at the optimal level, please follow up with your primary care doctor. Directions to Meet Your Goals Take your medications as prescribed Follow your dietary instruction Follow activity as directed Keep your appointments as scheduled Take your immunizations and boosters as scheduled If your symptoms worsen call your PCP, if no PCP go to Urgent Care Center or Emergency Room Smoking is Dangerous to Your Health. Avoid second hand smoke Call the 24-hour hour crisis hotline for domestic abuse at Ramon Miller MD R1 May 23, 2016 17:01
[2016-05-23 18:58] LABS: BICARBONATE 35.2 MEQ/L (21.0-32.0); POTASSIUM 3.9 MEQ/L (3.5-5.1)
[2016-05-23] MEDS ORDERED: SODIUM BICARBONATE 650 MG TAB PO ONE (20:15)
== END 2016-05-23 22:18 | disposition home or self-care (01) | DRG 392 ==
LOC: NEPE 13:02 → NEDA 17:55 → NEPGCP 20:31 → OBSVTOIN 22:14
PROVIDERS: ADMIT Family Medicine; ATTEND Family Medicine
DX: R10.11 Right upper quadrant pain (principal); J44.9 Chronic obstructive pulmonary disease, unspecified; I10 Essential (primary) hypertension; J98.11 Atelectasis; E86.0 Dehydration; F12.90 Cannabis use, unspecified, uncomplicated; J45.909 Unspecified asthma, uncomplicated; E87.6 Hypokalemia; G43.A0 Cyclical vomiting, in migraine, not intractable; Z82.49 Family history of ischemic heart disease and other diseases of the circulatory system; Z72.0 Tobacco use
CPT/HCPCS: 74176; 76705; 78227; 80048; 80053; 82550; 82552; 83605; 83690; 83735; 84484; 85025; 85610; 85730; 93005; 96361; 96374; 96375; A9537; J1644; J2270; J2405; J2805; J7030

== ENCOUNTER 2016-07-13 20:38 | Emergency (ER) | payer OTHER ==
[~2016-07-13 20:38] MED LIST: ZOFR4TAB3 SL
[2016-07-13 20:40] VITALS: BP 130/81; PULSE 69; RESP 18; TEMP 99.1; O2SAT 97
[2016-07-13 22:43] LABS: AUTOMATED NEUTROPHIL # 10.4 TH/MM3 (1.8-7.7); BASOPHIL % 0.2 % (0.0-2.0); HEMATOCRIT 46.3 % (39.0-51.0); HEMO FLAGS DIFF FINAL; LYMPHOCYTE # 1.1 TH/MM3 (1.0-4.8); MEAN CELL VOLUME 82.8 FL (80.0-100.0); MEAN CORPUSCULAR HEMOGLOBIN 28.1 PG (27.0-34.0); MEAN CORPUSCULAR HGB CONC 33.9 % (32.0-36.0); MONO % 4.3 % (0.0-8.0); NEUT % 86.5 % (16.0-70.0); PLATELET COUNT 273 TH/MM3 (150-450); RED BLOOD COUNT 5.59 MIL/MM3 (4.50-5.90); RED CELL DISTRIBUTION WIDTH 15.2 % (11.6-17.2)
[2016-07-13 23:01] LABS: ALT (GPT) 25 U/L (12-78); ANION GAP 8 MEQ/L (5-15); AST (GOT) 12 U/L (15-37); BICARBONATE 29.8 MEQ/L (21.0-32.0); BLOOD UREA NITROGEN 18 MG/DL (7-18); CHLORIDE 103 MEQ/L (98-107); GLOMERULAR FILTRATION RATE 72 ML/MIN (>89); POTASSIUM 3.6 MEQ/L (3.5-5.1); SODIUM (NA) 141 MEQ/L (136-145)
[2016-07-13 23:03] LABS: ALKALINE PHOSPHATASE 86 U/L (45-117); TOTAL BILIRUBIN ADULT 0.4 MG/DL (0.2-1.0)
[2016-07-13 23:46] VITALS: BP 197/89; PULSE 46; RESP 20; O2SAT 99
[2016-07-13] MEDS ORDERED: HYDR12.57 PO (23:46)
[2016-07-14] MEDS ORDERED: HYDROmorphone HCL PF 1 MG/ML VIAL IM ONE (00:15)
[2016-07-14] MEDS ORDERED: ONDANSETRON ODT 4 MG TAB PO ONE (00:15)
--- NOTE | 2016-07-14 00:39 | PD ---
HPI Chief Complaint: GI Complaint Time Seen by Provider: 23:52 Travel History International Travel<30 days: No Contact w/Intl Traveler<30days: No Traveled to known affect area: No History of Present Illness HPI This is a 50-year-old male who has a history of cyclic vomiting and abdominal pain who presents to the emergency department with 2 days of abdominal pain described as cramping, intermittent, moderate severity associated with multiple episodes of vomiting. Patient reports this happens every couple of months. He was just admitted in May for the same symptoms. At that time he had a CT scan, ultrasound and HIDA scan all of which were reassuring. They don't know what causes his symptoms. He says he doesn't drink alcohol routinely. He does smoke marijuana from time to time. He denies any fevers or chills. He says his symptoms feel the same as they have in the past. PFSH Past Medical History Asthma: Yes Blood Disorders: No Heart Rhythm Problems: No Cancer: No Cardiovascular Problems: Yes High Cholesterol: No Chest Pain: No Congestive Heart Failure: No COPD: No Diminished Hearing: No Endocrine: No Gastrointestinal Disorders: Yes Genitourinary: No Hypertension: Yes Immune Disorder: No Musculoskeletal: No Neurologic: No Psychiatric: No Reproductive: No Respiratory: Yes Sleep Apnea: No Past Surgical History Abdominal Surgery: Yes (HERNIA REPAIR) Other Surgery: Yes Social History Alcohol Use: Yes Tobacco Use: Yes Substance Use: No Allergies-Medications (Allergen,Severity, Reaction): Coded Allergies: No Known Allergies (Unverified , 05/22/16) Reported Meds & Prescriptions Reported Meds & Active Scripts Active Reported Hydrochlorothiazide 12.5 Mg Cap 10 Mg PO DAILY Review of Systems Except as stated in HPI: all other systems reviewed are Neg Physical Exam Narrative GENERAL:Well appearing, no acute distress SKIN: Warm and dry. HEAD: Atraumatic. Normocephalic. EYES: Pupils equal and round. No injection or drainage. ENT: Moist mucous membranes NECK: Trachea midline. CARDIOVASCULAR: Regular rate and rhythm. No murmur appreciated. RESPIRATORY: Clear to auscultation. Breath sounds equal bilaterally. GASTROINTESTINAL: Abdomen soft, mildly tender to palpation diffusely with no rebound or guarding. MUSCULOSKELETAL: No obvious deformities. NEUROLOGICAL: Awake and alert. No obvious cranial nerve deficits. Moving all extremities. PSYCHIATRIC: Appropriate mood and affect; insight and judgment normal. Data Data Last Documented VS Vital Signs Date Time Temp Pulse Resp B/P Pulse Ox O2 Delivery O2 Flow Rate FiO2 07/13/16 23:46 46 20 197/89 99 Room Air 07/13/16 20:40 99.1 Orders Complete Blood Count With Diff (07/13/16 21:17) Comprehensive Metabolic Panel (07/13/16 21:17) Urinalysis - C+S If Indicated (07/13/16 21:17) Lipase (07/13/16 21:17) Hydromorphone Pf Inj (Dilaudid Pf Inj) (07/14/16 00:15) Ondansetron Odt (Zofran Odt) (07/14/16 00:15) Labs Laboratory Tests Test 07/13/16 22:15 White Blood Count 12.0 TH/MM3 Red Blood Count 5.59 MIL/MM3 Hemoglobin 15.7 GM/DL Hematocrit 46.3 % Mean Corpuscular Volume 82.8 FL Mean Corpuscular Hemoglobin 28.1 PG Mean Corpuscular Hemoglobin 33.9 % Concent Red Cell Distribution Width 15.2 % Platelet Count 273 TH/MM3 Mean Platelet Volume 7.8 FL Neutrophils (%) (Auto) 86.5 % Lymphocytes (%) (Auto) 9.0 % Monocytes (%) (Auto) 4.3 % Eosinophils (%) (Auto) 0.0 % Basophils (%) (Auto) 0.2 % Neutrophils # (Auto) 10.4 TH/MM3 Lymphocytes # (Auto) 1.1 TH/MM3 Monocytes # (Auto) 0.5 TH/MM3 Eosinophils # (Auto) 0.0 TH/MM3 Basophils # (Auto) 0.0 TH/MM3 CBC Comment DIFF FINAL Differential Comment Sodium Level 141 MEQ/L Potassium Level 3.6 MEQ/L Chloride Level 103 MEQ/L Carbon Dioxide Level 29.8 MEQ/L Anion Gap 8 MEQ/L Blood Urea Nitrogen 18 MG/DL Creatinine 1.28 MG/DL Estimat Glomerular Filtration 72 ML/MIN Rate Random Glucose 109 MG/DL Calcium Level 10.0 MG/DL Total Bilirubin 0.4 MG/DL Aspartate Amino Transf 12 U/L (AST/SGOT) Alanine Aminotransferase 25 U/L (ALT/SGPT) Alkaline Phosphatase 86 U/L Total Protein 8.3 GM/DL Albumin 4.3 GM/DL Lipase 192 U/L MDM Medical Decision Making Medical Screen Exam Complete: Yes Emergency Medical Condition: Yes Interpretation(s) Mild leukocytosis Normotensive Leukocytosis with 86% neutrophils Electrolytes are reassuring Lipase is normal Differential Diagnosis Colitis, appendicitis, cholecystitis, pancreatitis Narrative Course This is a 50-year-old male who presents to the emergency department with abdominal pain and persistent vomiting. He's had these symptoms in the past. He was placed on a monitor. Labs are obtained which demonstrated a mild leukocytosis. Otherwise they're reassuring. I gave the patient a dose of pain medicine and antiemetics but he says he doesn't feel any better and he is starting to become more tachycardic. Plan for IV, IV hydration, additional pain control and CT scan. His CT scan is reassuring I don't think admission would benefit this patient as he had a complete workup last time he was in the hospital. Sydnie Flannery MD Jul 14, 2016 00:39
[2016-07-14] MEDS ORDERED: HYDROmorphone HCL PF 1 MG/ML VIAL IV PUSH ONE (01:30)
[2016-07-14] MEDS ORDERED: SODIUM CHLOR 0.9% 1000 ML INJ 1,000 ML IV ONE (01:30)
[2016-07-14] MEDS ORDERED: IOHEXOL 350 MG/ML 10 ML VIAL (for RAD DIAG) IV ONE (02:15)
--- NOTE | 2016-07-14 02:32 | RADRPT ---
EXAM DATE/TIME: 07/14/2016 02:04 [facility] COMPARISON: No previous studies available for comparison. INDICATIONS : Intermittent abdominal pain and vomiting for two days. IV CONTRAST: 69 cc Omnipaque 350 (iohexol) IV ORAL CONTRAST: No oral contrast ingested. RADIATION DOSE: 14.07 CTDIvol (mGy) MEDICAL HISTORY : Cardiovascular disease. Hypertension. Asthma SURGICAL HISTORY : None. ENCOUNTER: Initial ACUITY: 2 days PAIN SCALE: 3/10 LOCATION: Abdomen TECHNIQUE: Volumetric scanning of the abdomen and pelvis was performed. Using automated exposure control and ad justment of the mA and/or kV according to patient size, radiation dose was kept as low as reasonably achievable to obtain optimal diagnostic quality images. FINDINGS: Lung bases are clear. Mild fatty liver. Spleen, adrenals, kidneys and pancreas unremarkable. There is multilobulated herniation of fat through the ventral hernia near the umbilicus measuring up to 7.7 x 4.5 cm. No bowel herniation or incarceration is identified. There is no bowel obstruction. No free a ir or free fluid. No pelvic masses are identified. CONCLUSION: 1. No acute findings within the abdomen and pelvis. Fat containing umbilical hernia with measurements given above. Jeff Vera MD on July 14, 2016 at 2:26 Board Certified Radiologist. This report was verified electronically.
[2016-07-14 02:57] VITALS: BP 124/66; PULSE 61; RESP 14; O2SAT 95
== END 2016-07-14 04:08 | disposition home or self-care (01) ==
LOC: NEPA 20:38
DX: R10.9 Unspecified abdominal pain (principal); R11.10 Vomiting, unspecified; D72.829 Elevated white blood cell count, unspecified; R00.0 Tachycardia, unspecified; I10 Essential (primary) hypertension; Z72.0 Tobacco use; Z87.19 Personal history of other diseases of the digestive system; Z87.09 Personal history of other diseases of the respiratory system; Z86.79 Personal history of other diseases of the circulatory system
CPT/HCPCS: 74177; 80053; 83690; 85025; 96361; 96372; 96374; 99284; J1170; J7030; Q9967

== ENCOUNTER 2016-07-15 09:44 | Observation (INO) | payer OTHER ==
[~2016-07-15] VITALS: Ht 167.6 cm; Wt 95.0 kg
[~2016-07-15 09:44] MED LIST changes: +HYDR12.57 PO; -ZOFR4TAB3 SL
[2016-07-15 10:21] VITALS: BP 142/87; PULSE 51; RESP 18
[2016-07-15] MEDS ORDERED: SODIUM CHLOR 0.9% 1000 ML INJ 1,000 ML IV SCH (10:28)
[2016-07-15] MEDS ORDERED: PANTOPRAZOLE SODIUM 40 MG VIAL IVP ONE (10:30)
[2016-07-15] MEDS ORDERED: MORPHINE SULFATE 4 MG/ML INJ IV PUSH ONE (10:30)
[2016-07-15] MEDS ORDERED: ONDANSETRON HCL 4 MG/2 ML VIAL IVP ONE (10:30)
--- NOTE | 2016-07-15 10:34 | PD ---
HPI Chief Complaint: GI Complaint Time Seen by Provider: 10:22 Travel History International Travel<30 days: No Contact w/Intl Traveler<30days: No Traveled to known affect area: No History of Present Illness HPI 50-year-old male complains of abdominal pain with nausea vomiting. Patient states that symptoms started 2 days ago. Patient states that he has history recurrent abdominal pain with nausea vomiting for the past 5 years. Patient states that he was seen by emergency room and was admitted and was seen by GI specialist and had endoscopy without clear etiology of his symptoms. Patient states that he drinks alcohol occasionally. Patient states the pain is cramping pain localized upper abdomen. Patient states the pain radiates to the back. Patient denies any fever chills. Patient denies any dysuria or frequency. Patient states that he had not had a bowel movement in 2 days. Patient was seen in emergency room 2 days ago with same complaint. Patient was discharged home. PFSH Past Medical History Asthma: Yes Blood Disorders: No Heart Rhythm Problems: No Cancer: No Cardiovascular Problems: Yes High Cholesterol: No Chest Pain: No Congestive Heart Failure: No COPD: No Diminished Hearing: No Endocrine: No Gastrointestinal Disorders: Yes Genitourinary: No Hypertension: Yes Immune Disorder: No Musculoskeletal: No Neurologic: No Psychiatric: No Reproductive: No Respiratory: Yes Sleep Apnea: No Past Surgical History Abdominal Surgery: Yes (HERNIA REPAIR) Other Surgery: Yes Social History Alcohol Use: Yes Tobacco Use: Yes Substance Use: No Allergies-Medications (Allergen,Severity, Reaction): Coded Allergies: No Known Allergies (Unverified , 05/22/16) Reported Meds & Prescriptions Reported Meds & Active Scripts Active Reported Hydrochlorothiazide 12.5 Mg Cap 10 Mg PO DAILY Review of Systems General / Constitutional: No: Fever Eyes: No: Visual changes HENT: No: Headaches Cardiovascular: No: Chest Pain or Discomfort Respiratory: No: Shortness of Breath Gastrointestinal: Positive: Nausea, Vomiting, Abdominal Pain Genitourinary: No: Dysuria Musculoskeletal: No: Pain Skin: No Rash Neurologic: No: Weakness Psychiatric: No: Depression Endocrine: No: Polydipsia Hematologic/Lymphatic: No: Easy Bruising Physical Exam Narrative GENERAL: Well-nourished, well-developed patient. SKIN: Focused skin assessment warm/dry. HEAD: Normocephalic. EYES: No scleral icterus. No injection or drainage. NECK: Supple, trachea midline. No JVD or lymphadenopathy. CARDIOVASCULAR: Regular rate and rhythm without murmurs, gallops, or rubs. RESPIRATORY: Breath sounds equal bilaterally. No accessory muscle use. GASTROINTESTINAL: Abdomen soft, nondistended. Patient has moderate tenderness on palpation epigastric area. No rebound tenderness. No mass. MUSCULOSKELETAL: No cyanosis, or edema. BACK: Nontender without obvious deformity. No CVA tenderness. Neurologic exam normal. Data Data Last Documented VS Vital Signs Date Time Temp Pulse Resp B/P Pulse Ox O2 Delivery O2 Flow Rate FiO2 07/15/16 11:08 77 18 132/56 100 Room Air Orders Complete Blood Count With Diff (07/15/16 10:28) Comprehensive Metabolic Panel (07/15/16 10:28) Lipase (07/15/16 10:28) Prothrombin Time / Inr (Pt) (07/15/16 10:28) Act Partial Throm Time (Ptt) (07/15/16 10:28) Urinalysis - C+S If Indicated (07/15/16 10:28) Abdomen, Flat & Upright (07/15/16 ) Iv Access Insert/Monitor (07/15/16 10:28) Ecg Monitoring (07/15/16 10:28) Oximetry (07/15/16 10:28) Morphine Inj (Morphine Inj) (07/15/16 10:30) Ondansetron Inj (Zofran Inj) (07/15/16 10:30) Pantoprazole Inj (Protonix Inj) (07/15/16 10:30) Sodium Chlor 0.9% 1000 Ml Inj (Ns 1000 M (07/15/16 10:28) Labs Laboratory Tests Test 07/15/16 10:50 White Blood Count 12.4 TH/MM3 Red Blood Count 5.51 MIL/MM3 Hemoglobin 15.4 GM/DL Hematocrit 45.7 % Mean Corpuscular Volume 82.9 FL Mean Corpuscular Hemoglobin 28.0 PG Mean Corpuscular Hemoglobin 33.8 % Concent Red Cell Distribution Width 15.2 % Platelet Count 256 TH/MM3 Mean Platelet Volume 7.7 FL Neutrophils (%) (Auto) 78.1 % Lymphocytes (%) (Auto) 12.0 % Monocytes (%) (Auto) 9.4 % Eosinophils (%) (Auto) 0.1 % Basophils (%) (Auto) 0.4 % Neutrophils # (Auto) 9.7 TH/MM3 Lymphocytes # (Auto) 1.5 TH/MM3 Monocytes # (Auto) 1.2 TH/MM3 Eosinophils # (Auto) 0.0 TH/MM3 Basophils # (Auto) 0.1 TH/MM3 CBC Comment DIFF FINAL Differential Comment Prothrombin Time 11.9 SEC Prothromb Time International 1.1 RATIO Ratio Activated Partial 26.7 SEC Thromboplast Time Urine Color YELLOW Urine Turbidity CLEAR Urine pH 6.5 Urine Specific [place] 1.022 Urine Protein 100 mg/dL Urine Glucose (UA) NEG mg/dL Urine Ketones 10 mg/dL Urine Occult Blood NEG Urine Nitrite NEG Urine Bilirubin NEG Urine Urobilinogen LESS THAN 2.0 MG/DL Urine Leukocyte Esterase NEG Urine RBC 1 /hpf Urine Squamous Epithelial <1 /hpf Cells Urine Mucus FEW /lpf Microscopic Urinalysis Comment CULT NOT INDICATED Sodium Level 140 MEQ/L Potassium Level 3.1 MEQ/L Chloride Level 98 MEQ/L Carbon Dioxide Level 34.9 MEQ/L Anion Gap 7 MEQ/L Blood Urea Nitrogen 22 MG/DL Creatinine 1.33 MG/DL Estimat Glomerular Filtration 69 ML/MIN Rate Random Glucose 97 MG/DL Calcium Level 9.6 MG/DL Total Bilirubin 0.5 MG/DL Aspartate Amino Transf 14 U/L (AST/SGOT) Alanine Aminotransferase 26 U/L (ALT/SGPT) Alkaline Phosphatase 76 U/L Total Protein 7.9 GM/DL Albumin 4.1 GM/DL Lipase 140 U/L [facility] Medical Decision Making Medical Screen Exam Complete: Yes Emergency Medical Condition: Yes Interpretation(s) Last Impressions Abdomen X-Ray 07/15/16 0000 Signed Impressions: Service Date/Time: Friday, July 15, 2016 10:54 - CONCLUSION: 1. No evidence of obstruction. Cesar Murguia MD 11:58 AM. CBC WBC 12.4. 78 neutrophil. Potassium 3.1. BUN 22. Creatinine 1.33. UA negative. Differential Diagnosis Differential diagnosis including gastritis, PUD, pancreatitis, cholecystitis, colitis, UTI, pyelonephritis, nephrolithiasis, gastroparesis. Narrative Course 50-year-old male with epigastric abdominal pain and nausea vomiting. History of recurrent symptoms in the past. Normal saline solution 1 L IV bolus. Morphine 2 mg IV. Zofran 4 mg IV. Protonix 40 mg IV. KCl 20 mEq IV given. Diagnosis Primary Impression: Abdominal pain Qualified Code: R10.10 - Pain of upper abdomen Additional Impressions: Hypokalemia Renal insufficiency Misael Wong MD Jul 15, 2016 10:34 Misael Wong MD Jul 15, 2016 10:34
[2016-07-15 11:08] VITALS: BP 132/56; PULSE 77; RESP 18; O2SAT 100
[2016-07-15 11:16] LABS: AUTOMATED NEUTROPHIL # 9.7 TH/MM3 (1.8-7.7); BASOPHIL # 0.1 TH/MM3 (0-0.2); BASOPHIL % 0.4 % (0.0-2.0); EOSINOPHIL % 0.1 % (0.0-4.0); HEMATOCRIT 45.7 % (39.0-51.0); HEMO FLAGS DIFF FINAL; LYMPHOCYTE # 1.5 TH/MM3 (1.0-4.8); MEAN CELL VOLUME 82.9 FL (80.0-100.0); MEAN CORPUSCULAR HGB CONC 33.8 % (32.0-36.0); MONO % 9.4 % (0.0-8.0); NEUT % 78.1 % (16.0-70.0); PLATELET COUNT 256 TH/MM3 (150-450); RED BLOOD COUNT 5.51 MIL/MM3 (4.50-5.90); RED CELL DISTRIBUTION WIDTH 15.2 % (11.6-17.2); WHITE BLOOD COUNT 12.4 TH/MM3 (4.0-11.0)
--- NOTE | 2016-07-15 11:17 | RADRPT ---
EXAM DATE/TIME: 07/15/2016 10:54 [facility] COMPARISON: No previous studies available for comparison. INDICATIONS : Severe left lower quadrant pain. Prior hernia surgery bilateral hernia repair. MEDICAL HISTORY : bilateral hernias SURGICAL HISTORY : bilateral hernia repairs ENCOUNTER: Initial ACUITY: 2 days PAIN SCORE: 10/10 LOCATION: Left abdomen FINDINGS: Supine and upright views of the abdomen were performed. The abdominal bowel gas pattern is normal. No air fluid levels are seen. No abnormal masses, calcifications, or organomegaly is seen. The visu alized lower lungs are clear. No evidence of free intraperitoneal gas. The osseous structures are u nremarkable. CONCLUSION: 1. No evidence of obstruction. Cesar Murguia MD on July 15, 2016 at 11:00 Board Certified Radiologist. This report was verified electronically.
[2016-07-15 11:26] LABS: APTT (PATIENT) 26.7 SEC (24.3-30.1); INTERNATIONAL NORMALIZED RATIO 1.1 RATIO; PROTHROMBIN TIME - PATIENT 11.9 SEC (9.8-11.6)
[2016-07-15 11:33] LABS: ALT (GPT) 26 U/L (12-78); ANION GAP 7 MEQ/L (5-15); AST (GOT) 14 U/L (15-37); BICARBONATE 34.9 MEQ/L (21.0-32.0); BLOOD UREA NITROGEN 22 MG/DL (7-18); CHLORIDE 98 MEQ/L (98-107); GLOMERULAR FILTRATION RATE 69 ML/MIN (>89); POTASSIUM 3.1 MEQ/L (3.5-5.1); SODIUM (NA) 140 MEQ/L (136-145)
[2016-07-15 11:34] LABS: BLOOD, URINE NEG (NEG); COMMENT (UR) CULT NOT INDICATED; CULTURE IF INDICATED CULT NOT INDICATED; GLUCOSE,URINE NEG (NEG); KETONE, URINE 10 mg/dL (NEG); MUCUS URINE FEW /lpf (OCC); NITRITE,URINE NEG (NEG); PH, URINE 6.5 (5.0-8.5); SQUAMOUS EPITHELIAL CELL URINE <1 /hpf (0-5); URINE COLOR YELLOW (YELLW/STRAW)
[2016-07-15 11:36] LABS: ALKALINE PHOSPHATASE 76 U/L (45-117); TOTAL BILIRUBIN ADULT 0.5 MG/DL (0.2-1.0)
[2016-07-15] MEDS ORDERED: POTASSIUM CHLOR 20 MEQ PREMIX 100 ML IV ONE (12:15)
--- NOTE | 2016-07-15 12:35 | HHI.HP ---
HPI Service Family Medicine Primary Care Physician No Primary Care Physician Admission Diagnosis recurrent abdominal pain with nausea vomiting. Hypokalemia Diagnoses: Chief Complaint: vomiting International Travel<30 Days: No Contact w/Intl Traveler<30days: No Known Affected Area: No History of Present Illness 50 y/o male with history of HTN, presents with nausea/ vomiting. States he came in Monday to the ED with nausea and vomiting. Received some treatment and was discharged home. Had recurrent vomiting since then. Started again evening. Vomited 10 times or more. Says it has been red-tinged, no red-foods. Hadn't eaten since Monday, ate oatmeal, got sick after. Tried drinking and eating, but couldn't keep it down. No bowel movement since Monday. No diarrhea. Urinated this morning. States he has pain in his abdomen/both sides and radiates up to his chest. Can't pinpoint a specific side of his abdomen, but usually diffuse. Vomiting sometimes makes the pain better. He usually has to go to hospital to get pain medication that will resolve the process. Doesn't have a GI doctor. Has had an EGD, colonoscopy few months ago, which were negative. First episode was in 2010. Was told he had an ulcer in the past with EGD in [place]. Has been told he had a duodenal hernia as well. These spells occur every couple months. States they usually start in the morning, starts having cramps. Hasn't noticed correlation with foods or alcohol. Usually lasts 3-4 days. Last smoked marijuana on Monday, symptoms started Monday. [place] goes to the [place], is visiting from [place], [place]. Has had abdominal surgery in the past with hernia repair, states he sometimes it bulges out. (Rio Abreu MD R1) Review of Systems Constitutional: DENIES: Fever, Chills Eyes: DENIES: Vision loss Ears, nose, mouth, throat: DENIES: Hearing loss Gastrointestinal: COMPLAINS OF: Abdominal pain, Constipation, Nausea, Vomiting Genitourinary: DENIES: Urinary frequency, Urgency, Dysuria Integumentary: DENIES: Abnormal pigmentation, Rash Hematologic/lymphatic: DENIES: Bruising, Lymphadenopathy Neurologic: DENIES: Headache Psychiatric: DENIES: Confusion, Depression (Rio Abreu MD R1) Past Family Social History Past Medical History Asthma HTN Past Surgical History 2 abdominal hernias (15y ago) Eye surgery Reported Medications Reported Meds & Active Scripts Active Reported Hydrochlorothiazide 12.5 Mg Cap 10 Mg PO DAILY Inhaler (Rio Abreu MD R1) Allergies: Coded Allergies: No Known Allergies (Unverified , 05/22/16) Active Ordered Medications Active Medications Morphine Sulfate (Morphine Inj) 2 mg ONCE ONCE IV PUSH Last administered on 11:34; Admin Dose 2 MG; Start 07/15/16 at 10:30; Stop 07/15/16 at 10:32 ; Status DC Ondansetron HCl (Zofran Inj) 4 mg ONCE ONCE IVP Last administered on 07/15/16 11:32; Admin Dose 4 MG; Start 07/15/16 at 10:30; Stop 07/15/16 at 10:32; Status DC Pantoprazole Sodium 40 mg 40 mg ONCE ONCE IVP Last administered on 07/15/16 11 :32; Admin Dose 40 MG; Start 07/15/16 at 10:30; Stop 07/15/16 at 10:32; Status DC Potassium Chloride/Sodium Chloride (NS + KCl 20 Meq Inj) 1,000 ml @ 125 mls/hr Q8H IV; Start 07/15/16 at 12:30 Potassium Chloride 100 ml @ 50 mls/hr BOLUS ONCE IV; Start 07/15/16 at 12:15; Stop 07/15/16 at 14:14 Sodium Chloride 1,000 ml @ 1,000 mls/hr Q1H IV Last administered on 07/15/16 11:33; Admin Dose 1,000 MLS/HR; Start 07/15/16 at 10:28; Stop 07/15/16 at 11:27 ; Status DC Family History Mother-HD Siblings-healthy Social History Tobacco-1PPD for 37y Alcohol-rarely Illicit drug-1 joint marijuana daily (Rio Abreu MD R1) Physical Exam Vital Signs Vital Signs Date Time Temp Pulse Resp B/P Pulse Ox O2 Delivery O2 Flow Rate FiO2 07/15/16 11:08 77 18 132/56 100 Room Air 07/15/16 10:21 51 18 142/87 Physical Exam GENERAL: This is a well-nourished, well-developed patient, in no apparent distress. SKIN: No rashes, ecchymoses or lesions. Cool and dry. HEAD: Atraumatic. Normocephalic. EYES: Pupils equal round and reactive. Extraocular motions intact. No scleral icterus. No injection or drainage. ENT: Throat without erythema, tonsillar hypertrophy or exudate. Uvula midline. Airway patent. NECK: Trachea midline. No JVD or lymphadenopathy. Supple, nontender. CARDIOVASCULAR: Regular rate and rhythm without murmurs, gallops, or rubs. RESPIRATORY: Breath sounds equal bilaterally. Occasional wheezes. GASTROINTESTINAL: Abdomen soft, non-distended. Diffuse tenderness to palpation. Guarding present. BS+ MUSCULOSKELETAL: Extremities without clubbing, cyanosis, or edema. No calf tenderness. NEUROLOGICAL: Awake and alert. Motor and sensory grossly within normal limits. Normal speech. Laboratory Laboratory Tests Test 07/15/16 10:50 White Blood Count 12.4 Red Blood Count 5.51 Hemoglobin 15.4 Hematocrit 45.7 Mean Corpuscular Volume 82.9 Mean Corpuscular Hemoglobin 28.0 Mean Corpuscular Hemoglobin 33.8 Concent Red Cell Distribution Width 15.2 Platelet Count 256 Mean Platelet Volume 7.7 Neutrophils (%) (Auto) 78.1 Lymphocytes (%) (Auto) 12.0 Monocytes (%) (Auto) 9.4 Eosinophils (%) (Auto) 0.1 Basophils (%) (Auto) 0.4 Neutrophils # (Auto) 9.7 Lymphocytes # (Auto) 1.5 Monocytes # (Auto) 1.2 Eosinophils # (Auto) 0.0 Basophils # (Auto) 0.1 CBC Comment DIFF FINAL Differential Comment Prothrombin Time 11.9 Prothromb Time International 1.1 Ratio Activated Partial 26.7 Thromboplast Time Urine Color YELLOW Urine Turbidity CLEAR Urine pH 6.5 Urine Specific [place] 1.022 Urine Protein 100 Urine Glucose (UA) NEG Urine Ketones 10 Urine Occult Blood NEG Urine Nitrite NEG Urine Bilirubin NEG Urine Urobilinogen LESS THAN 2.0 Urine Leukocyte Esterase NEG Urine RBC 1 Urine Squamous Epithelial <1 Cells Urine Mucus FEW Microscopic Urinalysis Comment CULT NOT INDICATED Sodium Level 140 Potassium Level 3.1 Chloride Level 98 Carbon Dioxide Level 34.9 Anion Gap 7 Blood Urea Nitrogen 22 Creatinine 1.33 Estimat Glomerular Filtration 69 Rate Random Glucose 97 Calcium Level 9.6 Total Bilirubin 0.5 Aspartate Amino Transf 14 (AST/SGOT) Alanine Aminotransferase 26 (ALT/SGPT) Alkaline Phosphatase 76 Total Protein 7.9 Albumin 4.1 Lipase 140 (Rio Abreu MD R1) Result Diagram: 07/15/16 1050 07/15/16 1050 Imaging Last Impressions Abdomen X-Ray 07/15/16 0000 Signed Impressions: Service Date/Time: Friday, July 15, 2016 10:54 - CONCLUSION: 1. No evidence of obstruction. Cesar Murguia MD (Rio Abreu MD R1) Assessment and Plan Assessment and Plan 50 y/o male with history of HTN and cyclic vomiting presents with abdominal pain , nausea/vomiting for several days. Will admit for further workup and management. Code Status Full Discussed Condition With Drs. Stanford & Christiano (Rio Abreu MD R1) Attending Attestation Patient seen and examined. Case reviewed and discussed with the resident team. Agree with plan of care as discussed with me and documented in the resident note. pt seen on admission in ED (Maddie Stanford MD) Problem List: (1) Nausea & vomiting Status: Acute Plan: History of cyclic nausea/vomiting every few months. States he has been worked up in the past. Does endorse history of GI ulcer. Was admitted in May and gallbladder etiology was worked up, HIDA scan negative. Umbilical hernia per last CT scan. Endorses daily marijuana, stopped using day before symptoms, may be etiology of cyclic vomiting. UDS+ cannabinoids. Endorses bloody emesis and hx of ulcer. Vital signs stable. Abdominal xray: No evidence of obstruction -Consult GI: appreciate recs -Bloody emesis + hx of ulcer -Gastric emptying study -NS+KCl IVF -Protonix 40mg BID -Zofran PRN nausea -CLD -Pain control w/ tylenol, [place], morphine (2) HTN (hypertension) Status: Acute Plan: BP 142/87 on admission -Continue home HCTZ -Enalapril IV PRN (3) FEN/PPX Status: Acute Plan: Fluids: NS+20meq KCl @ 125mls/hr Electrolytes: Hypokalemia, replacing Nutrition: CLD DVT ppx: SCDs GI ppx: Protonix (Rio Abreu MD R1) Problem Qualifiers (1) Nausea & vomiting: Qualified Code: G43.A0 - Non-intractable cyclical vomiting with nausea (2) HTN (hypertension): Qualified Code: I10 - Essential hypertension Rio Abreu MD R1 Jul 15, 2016 12:35 Maddie Stanford MD Jul 16, 2016 12:46
[2016-07-15 13:04] VITALS: BP 167/81; PULSE 52; RESP 16; O2SAT 100
[2016-07-15] MEDS ORDERED: ACETAMINOPHEN 325 MG TAB PO PRN ×2 (13:15→14:45)
[2016-07-15] MEDS ORDERED: DOCUSATE SODIUM 50 MG/SENNA 8.6 MG TAB PO PRN (13:15)
[2016-07-15] MEDS ORDERED: CALCIUM CARBONATE 500 MG CHEWABLE TAB CHEW PRN (13:15)
[2016-07-15 14:35] LABS: AMPHETAMINE, URINE NEG (NEG); BARBITURATES, URINE NEG (NEG); COCAINE, URINE NEG (NEG)
[2016-07-15] MEDS ORDERED: MORPHINE SULFATE 4 MG/ML INJ IV PRN ×2 (14:45→15:00)
[2016-07-15] MEDS ORDERED: ACETAMINOPHEN/HYDROcodone 325 MG/7.5 MG TAB PO PRN (15:00)
[2016-07-15] MEDS ORDERED: NALOXONE HCL 0.4 MG/ML AMP IV PRN (15:00)
--- NOTE | 2016-07-15 16:19 | PD.CONS ---
HPI History of Present Illness This is a 50 year old male who came to the ER for evaluation of abdominal pain with associated nausea and vomiting. He reports that he has had intermittent n/ v and abdominal pain since 2010. He states that he usually has "flare ups" every few months with about 3-4 episodes per year. The first time he had the symptoms, he was in [place] and evaluated with EGD. He believes he may have had an ulcer at that time, although he is not entirely sure. He has continued to have symptoms off and on, although he cannot identify anything that seems to set this off. He was evaluated in [place] within the year and evaluated with EGD/Colonoscopy and he reports these both as normal. He was then hospitalized recently at this facility and evaluated with US GB (05/22/16)--- > Gallbladder sludge without biliary ductal dilatation, no free fluid. CT scan abdomen and pelvis without iv contrast (05/22/16)-----> no acute findings. Fat containing umbilical hernia measuring 3.5 cm in diameter. Linear atelectasis or scarring at the lung bases. HIDA Scan (05/23/16)----> negative for cystic duct or common duct obstruction with EF 50%. This latest episodes began on Monday. He started having nausea and vomiting consisting of undigested food and yellow bilious material. He reports that he had persistent vomiting and after awhile, he had a small amount of red blood streaked in his clear emesis. He c/o RUQ pain- described as a cramping or sharp intermittent pain with no radiation. This seems to be aggravated by vomiting, not po intake. He denies any associated diarrhea, melena, or hematochezia. He reports that his last BM was on Monday. He was seen while in [facility]. (Whitney Green) PFSH Past Medical History Asthma HTN Past Surgical History Skull fracture repair Umbilical hernia repair x 2 EGD/Colonoscopy (Whitney Green) Coded Allergies: No Known Allergies (Unverified , 05/22/16) Medications Allergies Coded Allergies Type Severity Reaction Last Updated Verified No Known Allergies 05/22/16 No Active Scripts Medications Dose Route/Sig Days Date Category Hydrochlorothiazide 12.5 Mg Cap 10 Mg PO DAILY 07/13/16 Reported Family History Mother had CHF Social History + Tobacco 37 pack year smoking hx Rare ETOH One marijuana joint daily (Whitney Green) Review of Systems Constitutional: COMPLAINS OF: Chills, DENIES: Fatigue, Fever, Weight loss, Change in appetite Respiratory: DENIES: Shortness of breath Cardiovascular: DENIES: Chest pain Gastrointestinal: COMPLAINS OF: Abdominal pain, Constipation, Nausea, Vomiting , Hematemesis, DENIES: Black stools, Bloody stools, Swelling of Abdomen Musculoskeletal: DENIES: Joint pain Integumentary: DENIES: Rash Hematologic/lymphatic: DENIES: Bruising Neurologic: DENIES: Headache Psychiatric: DENIES: Confusion (Whitney Green) GI Exam Vitals I&O Vital Signs Date Time Temp Pulse Resp B/P Pulse Ox O2 Delivery O2 Flow Rate FiO2 07/15/16 13:04 52 16 167/81 100 Room Air 07/15/16 11:08 77 18 132/56 100 Room Air 07/15/16 10:21 51 18 142/87 Imaging Last Impressions Abdomen X-Ray 07/15/16 0000 Signed Impressions: Service Date/Time: Friday, July 15, 2016 10:54 - CONCLUSION: 1. No evidence of obstruction. Cesar Murguia MD Laboratory Test 07/15/16 10:50 White Blood Count 12.4 TH/MM3 Red Blood Count 5.51 MIL/MM3 Hemoglobin 15.4 GM/DL Hematocrit 45.7 % Mean Corpuscular Volume 82.9 FL Mean Corpuscular Hemoglobin 28.0 PG Mean Corpuscular Hemoglobin 33.8 % Concent Red Cell Distribution Width 15.2 % Platelet Count 256 TH/MM3 Mean Platelet Volume 7.7 FL Neutrophils (%) (Auto) 78.1 % Lymphocytes (%) (Auto) 12.0 % Monocytes (%) (Auto) 9.4 % Eosinophils (%) (Auto) 0.1 % Basophils (%) (Auto) 0.4 % Neutrophils # (Auto) 9.7 TH/MM3 Lymphocytes # (Auto) 1.5 TH/MM3 Monocytes # (Auto) 1.2 TH/MM3 Eosinophils # (Auto) 0.0 TH/MM3 Basophils # (Auto) 0.1 TH/MM3 CBC Comment DIFF FINAL Differential Comment Prothrombin Time 11.9 SEC Prothromb Time International 1.1 RATIO Ratio Activated Partial 26.7 SEC Thromboplast Time Urine Color YELLOW Urine Turbidity CLEAR Urine pH 6.5 Urine Specific [place] 1.022 Urine Protein 100 mg/dL Urine Glucose (UA) NEG mg/dL Urine Ketones 10 mg/dL Urine Occult Blood NEG Urine Nitrite NEG Urine Bilirubin NEG Urine Urobilinogen LESS THAN 2.0 MG/DL Urine Leukocyte Esterase NEG Urine RBC 1 /hpf Urine Squamous Epithelial <1 /hpf Cells Urine Mucus FEW /lpf Microscopic Urinalysis Comment CULT NOT INDICATED Sodium Level 140 MEQ/L Potassium Level 3.1 MEQ/L Chloride Level 98 MEQ/L Carbon Dioxide Level 34.9 MEQ/L Anion Gap 7 MEQ/L Blood Urea Nitrogen 22 MG/DL Creatinine 1.33 MG/DL Estimat Glomerular Filtration 69 ML/MIN Rate Random Glucose 97 MG/DL Calcium Level 9.6 MG/DL Total Bilirubin 0.5 MG/DL Aspartate Amino Transf 14 U/L (AST/SGOT) Alanine Aminotransferase 26 U/L (ALT/SGPT) Alkaline Phosphatase 76 U/L Total Protein 7.9 GM/DL Albumin 4.1 GM/DL Lipase 140 U/L Urine Opiates Screen NEG Urine Barbiturates Screen NEG Urine Amphetamines Screen NEG Urine Benzodiazepines Screen NEG Urine Cocaine Screen NEG Urine Cannabinoids Screen POS Physical Examination Unable to examine- in GES (Whitney Green) Physical Examination GENERAL: well-nourished, well-developed patient, in no acute distress. HEAD: Atraumatic. Normocephalic. EYES: Pupils equal round and reactive. Extraocular motions intact. No scleral icterus. No injection or drainage. ENT: Throat without erythema, tonsillar hypertrophy or exudate. Uvula midline. Airway patent. NECK: No JVD or lymphadenopathy. Supple CARDIOVASCULAR: Regular rate and rhythm without murmurs, gallops, or rubs. RESPIRATORY: Breath sounds equal bilaterally. Occasional wheezes. GASTROINTESTINAL: Abdomen soft, non-distended. Mildly tender but no rebound or guarding. Bowel sounds present MUSCULOSKELETAL: Extremities without clubbing, cyanosis, or edema. No calf tenderness. NEUROLOGICAL: Awake and alert. Motor and sensory grossly within normal limits. Normal speech. SKIN: No rashes, ecchymoses or lesions. Cool and dry. (Tristen Forbes El-maris ZAMARRIPA ) Assessment and Plan Plan ASSESSMENT: - Recurrent N/V, Abdominal pain. Pt has had intermittent n/v/pain since 2010 with flares every 3-4 months. He complains of n/v, followed by RUQ pain. He cannot identify any aggravating factors, but states the pain comes after the vomiting. S/P EGD/Colonoscopy within the year in [place] and he reports this as normal. He states he may have been told he had an ulcer by egd in 2010. He has been evaluated at this facility with recent US/CT/HIDA. US GB (05/22/16)---> Gallbladder sludge without biliary ductal dilatation, no free fluid. CT scan abdomen and pelvis without iv contrast (05/22/16)-----> no acute findings. Fat containing umbilical hernia measuring 3.5 cm in diameter. Linear atelectasis or scarring at the lung bases. HIDA Scan (05/23/16)----> negative for cystic duct or common duct obstruction with EF 50%. Pt currently getting GES. He does smoke one marijuana joint daily. Mild leukocytosis 12.4. LFT normal. Lipase normal. PPI, Zofran prn. IVF. Will await results of GES. - Hematemesis. States he had a scant amount of bright red blood streaked within clear emesis after persistent vomiting. Not currently vomiting. HH stable. PPI. States he had EGD/Colonoscopy within the year ([place] ) and these were normal. - HTN per primary PLAN: - Clear liquids - Await GES - Cont.PPI - Cont. IVF - Cont. Zofran prn - Monitor labs - Notify GI of active bleeding - Further recommendations to follow after GES results - Pt seen and examined by Dr. Forbes and myself and this note is written on his behalf (Whitney Green) Physician Comments Patient seen and examined Agree with above Continue with current supportive care Monitor labs We'll pursue an EGD tomorrow to further evaluate the nausea vomiting pain and hematemesis (Tristen Forbes MD) Whitney Green Jul 15, 2016 16:19 Tristen Forbes MD Jul 15, 2016 19:29
[2016-07-15] MEDS ORDERED: METOCLOPRAMIDE HCL 10 MG/2 ML VIAL ONE (16:41)
--- NOTE | 2016-07-15 17:56 | RADRPT ---
EXAM DATE/TIME: 07/15/2016 15:16 [facility] COMPARISON: No previous studies available for comparison. INDICATIONS : Nausea and vomiting. DOSE: 1.0 mCi Tc99m Sulfur Colloid Labeled Whole egg PO MEDICATONS: 1.) 5 mg Reglan IV at 90 minutes IMAGIN hrs MEDICAL HISTORY : Hypertension. SURGICAL HISTORY : Inguinal hernia repair. ENCOUNTER: Initial ACUITY: 1 day PAIN SCALE: 0/10 LOCATION: Abdomen. TECHNIQUE: Following the oral ingestion of radiotracer-labeled meal, dynamic sequential images in the PRYDEINIG projec tion were acquired with simultaneous computer acquisition. The data set was decay-corrected. FINDINGS: LAG PHASE: There is 60 minutes before onset of gastric emptying. EMPTYING: Gastric emptying kinetics are linear. The decay-corrected, back-extrapolated half-time of emptying i s 16 minutes. (Normal for this lab is 45- 90 minutes.) INTERVENTION: Stomach was empty when Reglan was administered. CONCLUSION: Rapid gastric emptying Yony Monzon MD FACR on July 15, 2016 at 17:48 Board Certified Radiologist. This report was verified electronically.
[2016-07-15 19:36] VITALS: BP 140/84; PULSE 54; RESP 18; TEMP 97.9; O2SAT 97
[2016-07-15] MEDS: SODIUM CHLORIDE 0.9% FLUSH 10 ML FLUSH IV FLUSH SCH (21:00)
[2016-07-15] MEDS: PANTOPRAZOLE SODIUM 40 MG VIAL IV PUSH SCH (22:22)
[2016-07-15] MEDS: ACETAMINOPHEN/HYDROcodone 325 MG/5 MG TAB PO PRN (22:33)
[2016-07-15] MEDS: NS + KCL 20 MEQ INJ 1,000 ML IV SCH (22:37)
[2016-07-16] MEDS: NS + KCL 20 MEQ INJ 1,000 ML IV SCH ×3 (04:30→20:30)
[2016-07-16 06:57] LABS: AUTOMATED NEUTROPHIL # 5.3 TH/MM3 (1.8-7.7); BASOPHIL # 0.1 TH/MM3 (0-0.2); BASOPHIL % 0.7 % (0.0-2.0); EOSINOPHIL # 0.1 TH/MM3 (0-0.4); EOSINOPHIL % 1.1 % (0.0-4.0); HEMATOCRIT 43.3 % (39.0-51.0); HEMO FLAGS DIFF FINAL; LYMPHOCYTE # 3.1 TH/MM3 (1.0-4.8); MEAN CELL VOLUME 83.9 FL (80.0-100.0); MEAN CORPUSCULAR HEMOGLOBIN 27.9 PG (27.0-34.0); MEAN CORPUSCULAR HGB CONC 33.2 % (32.0-36.0); MONO % 10.3 % (0.0-8.0); NEUT % 55.9 % (16.0-70.0); PLATELET COUNT 231 TH/MM3 (150-450); RED BLOOD COUNT 5.16 MIL/MM3 (4.50-5.90); RED CELL DISTRIBUTION WIDTH 15.2 % (11.6-17.2); WHITE BLOOD COUNT 9.6 TH/MM3 (4.0-11.0)
[2016-07-16 07:14] LABS: ALKALINE PHOSPHATASE 62 U/L (45-117); ALT (GPT) 22 U/L (12-78); ANION GAP 7 MEQ/L (5-15); AST (GOT) 9 U/L (15-37); BICARBONATE 28.9 MEQ/L (21.0-32.0); BLOOD UREA NITROGEN 18 MG/DL (7-18); CHLORIDE 106 MEQ/L (98-107); GLOMERULAR FILTRATION RATE 82 ML/MIN (>89); POTASSIUM 3.3 MEQ/L (3.5-5.1); SODIUM (NA) 142 MEQ/L (136-145); TOTAL BILIRUBIN ADULT 0.5 MG/DL (0.2-1.0)
[2016-07-16 07:44] VITALS: BP 140/86; PULSE 50; RESP 18; TEMP 98.9; O2SAT 99
[2016-07-16 08:23] VITALS: O2SAT 98
[2016-07-16] MEDS: HYDROCHLOROTHIAZIDE 12.5 MG CAP PO SCH (09:00)
[2016-07-16] MEDS: SODIUM CHLORIDE 0.9% FLUSH 10 ML FLUSH IV FLUSH SCH ×2 (09:00→20:32)
[2016-07-16 12:06] VITALS: BP 178/93; PULSE 50; RESP 18; O2SAT 96
--- NOTE | 2016-07-16 12:46 | HHI.HP ---
[facility] Service Family Medicine Primary Care Physician No Primary Care Physician Admission Diagnosis recurrent abdominal pain with nausea vomiting. Hypokalemia Diagnoses: (1) Nausea & vomiting Diagnosis: Principal (2) HTN (hypertension) Diagnosis: Principal (3) FEN/PPX Diagnosis: Principal International Travel<30 Days: No Contact w/Intl Traveler<30days: No Known Affected Area: No History of Present Illness Mr Mckeon is a 50 y/o male with history of HTN, presented with nausea/vomiting. States he came in Monday to the ED with nausea and vomiting. Received some treatment and was discharged home. Had recurrent vomiting since then. Started again evening. Vomited 10 times or more. Says it has been red-tinged, no red-foods. Hadn't eaten since Monday, ate oatmeal, got sick after. Tried drinking and eating, but couldn't keep it down. No bowel movement since Monday. No diarrhea. Urinating normally. States he has pain in his abdomen/both sides and radiated up to his chest. Can't pinpoint a specific side of his abdomen, but usually diffuse. Vomiting sometimes makes the pain better. He usually has to go to hospital to get pain medication that will resolve the process. Doesn't have a GI doctor. Has had an EGD, colonoscopy few months ago, which were negative. First episode was in 2010. Was told he had an ulcer in the past with EGD in [place]. Has been told he had a duodenal hernia as well. These spells occur every couple months. States they usually start in the morning, starts having cramps. Hasn't noticed correlation with foods or alcohol. Usually lasts 3-4 days. Last smoked marijuana on Monday, symptoms started Monday. He goes to the [facility], is visiting from [place], [place]. Has had abdominal surgery in the past with hernia repair, states he sometimes it bulges out. He was feeling back to normal this am. he tolerated the radioactive egg on the gastric emptying study perfectly and had rapid transit times , not slowed. He has had no further vomiting and has not seen any blood in his stools and no further blood seen. He is scheduled for EGD based on the history of ulcers and also the visible blood in his vomitus. Review of Systems Other Constitutional: DENIES: Fever, Chills Eyes: DENIES: Vision loss Ears, nose, mouth, throat: DENIES: Hearing loss Gastrointestinal: COMPLAINS OF: Abdominal pain, Constipation, Nausea, Vomiting Genitourinary: DENIES: Urinary frequency, Urgency, Dysuria Integumentary: DENIES: Abnormal pigmentation, Rash Hematologic/lymphatic: DENIES: Bruising, Lymphadenopathy Neurologic: DENIES: Headache Psychiatric: DENIES: Confusion, Depression Past Family Social History Past Medical History Asthma HTN Past Surgical History 2 abdominal hernias (15y ago) Eye surgery Allergies: Coded Allergies: No Known Allergies (Unverified , 05/22/16) Family History Mother-HD Siblings-healthy Social History Tobacco-1PPD for 37y Alcohol-rarely Illicit drug-1 joint marijuana daily, sometimes more Physical Exam Vital Signs Vital Signs Date Time Temp Pulse Resp B/P Pulse Ox O2 Delivery O2 Flow Rate FiO2 07/16/16 12:06 50 18 178/93 96 07/16/16 08:23 98 21 07/16/16 07:44 98.9 50 18 140/86 99 07/15/16 19:36 97.9 54 18 140/84 97 07/15/16 13:04 52 16 167/81 100 Room Air Physical Exam GENERAL: This is a well-nourished, well-developed patient, in no apparent distress. He feels back to normal today SKIN: No rashes, ecchymoses or lesions. Cool and dry. HEAD: Atraumatic. Normocephalic. EYES: Pupils equal round and reactive. Extraocular motions intact. No scleral icterus. No injection or drainage. ENT: Throat without erythema, tonsillar hypertrophy or exudate. Uvula midline. Airway patent. NECK: Trachea midline. No JVD or lymphadenopathy. Supple, nontender. CARDIOVASCULAR: Regular rate and rhythm without murmurs, gallops, or rubs. RESPIRATORY: Breath sounds equal bilaterally. Occasional wheezes. GASTROINTESTINAL: Abdomen soft, non-distended. Diffuse tenderness to palpation on admission. Guarding present. now benign abdominal exam BS+ MUSCULOSKELETAL: Extremities without clubbing, cyanosis, or edema. No calf tenderness. NEUROLOGICAL: Awake and alert. Motor and sensory grossly within normal limits. Normal speech. Laboratory Laboratory Tests Test 07/16/16 05:30 White Blood Count 9.6 Red Blood Count 5.16 Hemoglobin 14.4 Hematocrit 43.3 Mean Corpuscular Volume 83.9 Mean Corpuscular Hemoglobin 27.9 Mean Corpuscular Hemoglobin 33.2 Concent Red Cell Distribution Width 15.2 Platelet Count 231 Mean Platelet Volume 7.9 Neutrophils (%) (Auto) 55.9 Lymphocytes (%) (Auto) 32.0 Monocytes (%) (Auto) 10.3 Eosinophils (%) (Auto) 1.1 Basophils (%) (Auto) 0.7 Neutrophils # (Auto) 5.3 Lymphocytes # (Auto) 3.1 Monocytes # (Auto) 1.0 Eosinophils # (Auto) 0.1 Basophils # (Auto) 0.1 CBC Comment DIFF FINAL Differential Comment Sodium Level 142 Potassium Level 3.3 Chloride Level 106 Carbon Dioxide Level 28.9 Anion Gap 7 Blood Urea Nitrogen 18 Creatinine 1.14 Estimat Glomerular Filtration 82 Rate Random Glucose 80 Calcium Level 8.6 Total Bilirubin 0.5 Aspartate Amino Transf 9 (AST/SGOT) Alanine Aminotransferase 22 (ALT/SGPT) Alkaline Phosphatase 62 Total Protein 6.2 Albumin 3.2 Result Diagram: 07/16/16 0530 07/16/16 0530 Imaging Last Impressions Abdomen X-Ray 07/15/16 0000 Signed Impressions: Service Date/Time: Friday, July 15, 2016 10:54 - CONCLUSION: 1. No evidence of obstruction. Cesar Murguia MD Assessment and Plan Assessment and Plan 50 y/o male with history of HTN and cyclic vomiting presents with abdominal pain , nausea/vomiting for several days. Was kept for further workup and management. Since he is back to normal today, hope he can go home after EGD is normal Problem List: (1) Nausea & vomiting Status: Acute Plan: History of cyclic nausea/vomiting every few months. States he has been worked up in the past. Does endorse history of GI ulcer. Was admitted in May and gallbladder etiology was worked up, HIDA scan negative. Umbilical hernia per last CT scan. Endorses daily marijuana, stopped using day before symptoms, may be etiology of cyclic vomiting. UDS+ cannabinoids. Discussed that marijuana can cause nausea and vomiting and that it would be good to avoid this, however, he is not convinced of this also discussed that some cyclic vomiting can be related to migraine equivalent but he has no personal or FH of migraines so unclear if this could contribute Endorses bloody emesis and hx of ulcer. Vital signs stable. Abdominal xray: No evidence of obstruction -Consult GI: appreciate recs -Bloody emesis + hx of ulcer -Gastric emptying study fine -NS+KCl IVF -Protonix 40mg BID -Zofran PRN nausea -CLD -Pain control w/ tylenol, [place], morphine, no pain today (2) HTN (hypertension) Status: Acute Plan: BP 142/87 on admission -Continue home HCTZ -Enalapril IV PRN (3) FEN/PPX Status: Acute Plan: Fluids: NS+20meq KCl @ 125mls/hr Electrolytes: Hypokalemia, replacing Nutrition: CLD DVT ppx: SCDs GI ppx: Protonix Problem Qualifiers (1) Nausea & vomiting: Qualified Code: G43.A0 - Non-intractable cyclical vomiting with nausea (2) HTN (hypertension): Qualified Code: I10 - Essential hypertension Maddie Stanford MD Jul 16, 2016 12:46
--- NOTE | 2016-07-16 13:29 | HHI.DCPOC ---
Discharge Care Plan Diagnosis: (1) HTN (hypertension) (2) Nausea & vomiting (3) Abdominal pain (4) Hypokalemia Goals to Promote Your Health * To prevent worsening of your condition and complications * To maintain your health at the optimal level Directions to Meet Your Goals Take your medications as prescribed Follow your dietary instruction Follow activity as directed Keep your appointments as scheduled Take your immunizations and boosters as scheduled If your symptoms worsen call your PCP, if no PCP go to Urgent Care Center or Emergency Room Smoking is Dangerous to Your Health. Avoid second hand smoke Call the 24-hour hour crisis hotline for domestic abuse at [place] Abreu MD R1 Jul 16, 2016 13:29
[2016-07-16] MEDS ORDERED: PROT40TA PO (13:30)
[2016-07-16] MEDS: PANTOPRAZOLE SODIUM 40 MG VIAL IV PUSH SCH ×2 (15:19→22:11)
[2016-07-16] MEDS ORDERED: PROPOFOL 200 MG/20 ML AMP IV ONE (15:58)
--- NOTE | 2016-07-16 16:11 | GIPROC ---
[facility] [address] [facility]. [facility], [address] EGD PROCEDURE REPORT EXAM DATE: 07/16/2016 PATIENT NAME: Derrick Mckeon MR #: [id number] BIRTHDATE: 1965 ATTENDING: Alejandro Dickinson MD ORDER #: [id number] VASCULAR SPECIALISTS: Juanita Birmingham Dobbs, Deborah, and Alysa Bunch STATUS: inpatient INDICATIONS: The patient is a 50 yr old male here for an EGD due to hematemesis and vomiting PROCEDURE PERFORMED: EGD w/ biopsy MEDICATIONS: Per Anesthesia and None. TOPICAL ANESTHETIC: CONSENT: The patient understands the risks and benefits of the procedure and understands that these risks include, but are not limited to: sedation, allergic reaction, infection, perforation and/or bleeding. Alternative means of evaluation and treatment include, among others: physical exam, x-rays, and/or surgical intervention. The patient elects to proceed with this endoscopic procedure. medical equipment was checked for proper function. Hand hygiene and appropriate measures for infection prevention was taken. After the risks, benefits and alternatives of the procedure were thoroughly explained, Informed consent was verified, confirmed and timeout was successfully executed by the treatment team. The patient was anesthetized with topical anesthesia and the Pentax EG-[id number] endoscope was introduced through the mouth and advanced to the second portion of the duodenum. Retroflexed views revealed no abnormalities The gastroscope was then slowly withdrawn and removed. ESOPHAGUS: There was LA Class B esophagitis noted. A biopsy was performed using cold forceps. Sample sent for histology. STOMACH: There was acute moderate gastritis in the gastric fundus. A biopsy was performed using cold forceps. ADVERSE EVENTS: There were no complications. IMPRESSIONS: 1. There was LA Class B esophagitis noted; biopsy was performed 2. There was acute gastritis in the gastric fundus; biopsy was performed 3. Retroflexed views revealed no abnormalities RECOMMENDATIONS: 1. Await biopsy results. Biopsy results will not be ready for 7-10 days. If you don't hear from us in two weeks, call our office for biopsy results. 2. Anti-reflux regimen 3. Continue PPI 4. Avoid NSAIDS PATIENT CONDITION: stable DISPOSITION: Inpatient REPEAT EXAM: Return 1 year EGD Alejandro Dickinson MD eSigned: Alejandro Dickinson MD 07/16/2016 4:10 PM cc: PATIENT NAME: Derrick Mckeon MR#: [id number]
[2016-07-16 19:45] VITALS: BP 135/77; PULSE 63; RESP 19; TEMP 98.1; O2SAT 94
[2016-07-16 21:03] VITALS: O2SAT 94
[2016-07-16] MEDS ORDERED: TEMAZEPAM 15 MG CAP PO PRN (21:45)
[2016-07-16] MEDS: SODIUM CHLORIDE 0.9% FLUSH 10 ML FLUSH IV FLUSH PRN (22:12)
[2016-07-17] VITALS (7 sets, daily range): BP systolic 75–196; BP diastolic 73–100; PULSE 41–55; RESP 18–20; TEMP 97.9–98.3; O2SAT 95–97
[2016-07-17] MEDS: NS + KCL 20 MEQ INJ 1,000 ML IV SCH ×2 (04:10→10:11)
[2016-07-17] MEDS: ONDANSETRON HCL 4 MG/2 ML VIAL IV PRN (07:42)
[2016-07-17] MEDS: ACETAMINOPHEN/HYDROcodone 325 MG/5 MG TAB PO PRN (07:49)
[2016-07-17] MEDS ORDERED: ACETAMINOPHEN 1000 MG/100 ML VIAL IV ONE (08:30)
[2016-07-17] MEDS: PANTOPRAZOLE SODIUM 40 MG VIAL IV PUSH SCH (09:00)
[2016-07-17] MEDS: HYDROCHLOROTHIAZIDE 12.5 MG CAP PO SCH (09:00)
[2016-07-17] MEDS: SODIUM CHLORIDE 0.9% FLUSH 10 ML FLUSH IV FLUSH SCH ×2 (09:00→21:00)
--- NOTE | 2016-07-17 09:32 | HHI.FPPN ---
Subjective Remarks No acute events overnight. Vital signs unremarkable. This morning patient reports that he started to feel nauseous and dry heaves at 5:00. It did not wake him up from his sleep as he is already up due to the poor night's sleep. Also complaining of diaphoresis and periumbilical abdominal pain. States that he feels like the day he was admitted. Also describes systemic pain as "hunger pains." Denies any chest pain or shortness of breath. (Clemencia Alvarado MD R2) Objective Vitals Vital Signs Date Time Temp Pulse Resp B/P Pulse Ox O2 Delivery O2 Flow Rate FiO2 07/17/16 08:41 98.3 52 18 156/90 95 07/17/16 03:17 98.1 55 19 130/75 95 07/17/16 00:05 98.2 50 20 127/75 96 07/16/16 21:03 94 07/16/16 19:45 98.1 63 19 135/77 94 07/16/16 16:30 70 16 133/89 95 07/16/16 16:20 70 16 132/91 97 07/16/16 16:07 98.7 74 23 133/89 97 07/16/16 12:06 50 18 178/93 96 I/O 07/16/16 07/16/16 07/16/16 07/17/16 07/17/16 07/17/16 07:00 15:00 23:00 07:00 15:00 23:00 Intake Total 400 ml Balance 400 ml Intake Other 400 ml (Clemencia Alvarado MD R2) Result Diagram: 07/16/1652907/16/16 0530 Objective Remarks GEN: Well-developed, well-nourished patient. Diaphoretic and in obvious discomfort/pain. Sitting in chair and then moved to bed unassisted. CV: Regular rate and rhythm without obvious murmurs LUNGS: Clear to auscultation bilaterally. Normal respiratory effort. No wheezes , rales, rhonchi. GI: Soft, nondistended, mild tenderness to palpation diffusely. EXT: No edema. No calf tenderness. NEURO/PSYCH: Awake, alert. Appropriate insight and judgment. Normal speech. Normal gait Procedures Endoscopy which showed gastritis and esophagitis (Clemencia Alvarado MD R2) A/P Assessment and Plan 50 y/o male with history of HTN and cyclic vomiting. Admitted for abdominal pain and nausea/vomiting for several days. Discharge Planning Tomorrow pending improvement in abdominal pain nausea/vomiting dw Dr. Abreu wdw Dr. Stanford (Clemencia Alvarado MD R2) Attending Attestation Patient seen and examined. Case reviewed and discussed with the resident team. Agree with plan of care as discussed with me and documented in the resident note. he was dripping wet from diaphoresis and had his pain as well as vomiting. his troponin was normal and his EKG just showed sinus bradycardia but no ischemic changes. Considering possible esophageal spasm so tried SL NTG to see if that would help. He is not hypotensive and I suspected his bradycardia was from vagal stimulation with the pain and vomiting. It was difficult to tell if the NTG made a big difference but he did have some improvement afterwards though he had received multiple other meds (Maddie Stanford MD) Problem List: (1) Nausea & vomiting Status: Acute Plan: History of cyclic nausea/vomiting every few months. States he has been worked up in the past. Does endorse history of GI ulcer. Was admitted in May and gallbladder etiology was worked up, HIDA scan negative. Umbilical hernia per last CT scan. Etiology me be due to cyclical vomiting vs cannabis hyperemesis -Counseled about marijuana cessation -Abdominal xray: No evidence of obstruction -Gastric emptying: rapid gastric emptying Consult GI: appreciate recs * EGD: Gastritis and esophagitis Medications: * Added Amitriptyline 10mg qHS * Oxycodone * Acetaminophen IV if unable to take PO * Zofran PRN nausea * Protonix 40mg daily (2) HTN (hypertension) Status: Chronic Plan: -Continue home HCTZ -Enalapril IV PRN (3) FEN/PPX Status: Acute Plan: Fluids: NS+20meq KCl @ 125mls/hr Electrolytes: Hypokalemia, replacing Nutrition: regular DVT ppx: SCDs and lovenox GI ppx: Protonix (Clemencia Alvarado MD R2) Problem Qualifiers (1) Nausea & vomiting: Qualified Code: G43.A0 - Non-intractable cyclical vomiting with nausea (2) HTN (hypertension): Qualified Code: I10 - Essential hypertension Clemencia Alvarado MD R2 Jul 17, 2016 09:32 Maddie Stanford MD Jul 17, 2016 14:43
[2016-07-17] MEDS ORDERED: PANTOPRAZOLE SODIUM 40 MG VIAL IV PUSH SCH (09:40)
[2016-07-17] MEDS ORDERED: NITROGLYCERIN 0.3 MG SL 100 TABS/BTL SL ONE (10:00)
[2016-07-17] MEDS ORDERED: NITROGLYCERIN 0.4 MG SL 25 TABS/BTL SL PRN (10:30)
[2016-07-17 11:05] LABS: MEAN CELL VOLUME 83.6 FL (80.0-100.0); MEAN CORPUSCULAR HGB CONC 33.5 % (32.0-36.0); PLATELET COUNT 235 TH/MM3 (150-450); RED BLOOD COUNT 5.62 MIL/MM3 (4.50-5.90); REVIEW FLAG FINAL; WHITE BLOOD COUNT 10.1 TH/MM3 (4.0-11.0)
[2016-07-17 11:19] LABS: ANION GAP 8 MEQ/L (5-15); BICARBONATE 27.1 MEQ/L (21.0-32.0); BLOOD UREA NITROGEN 10 MG/DL (7-18); CHLORIDE 104 MEQ/L (98-107); GLOMERULAR FILTRATION RATE 79 ML/MIN (>89); POTASSIUM 3.5 MEQ/L (3.5-5.1); SODIUM (NA) 139 MEQ/L (136-145)
[2016-07-17] MEDS: ENALAPRILAT 1.25 MG/ML VIAL IV PRN (16:49)
[2016-07-17] MEDS ORDERED: ACETAMINOPHEN 1000 MG/100 ML VIAL IV PRN (17:00)
[2016-07-17] MEDS ORDERED: AMITRIPTYLINE HCL 10 MG TAB PO SCH (21:00)
[2016-07-17] MEDS ORDERED: ENOXAPARIN SODIUM 40 MG/0.4 ML SYRINGE SQ SCH (21:00)
[2016-07-18 00:09] VITALS: BP 134/93; PULSE 75; RESP 20; TEMP 97.8; O2SAT 96
[2016-07-18 03:37] VITALS: PULSE 80; RESP 20; TEMP 97.6; O2SAT 97
[2016-07-18] MEDS: ENALAPRILAT 1.25 MG/ML VIAL IV PRN ×2 (03:49→11:55)
[2016-07-18] MEDS: ONDANSETRON HCL 4 MG/2 ML VIAL IV PRN ×2 (03:49→13:45)
[2016-07-18] MEDS: SODIUM CHLORIDE 0.9% FLUSH 10 ML FLUSH IV FLUSH PRN (03:49)
[2016-07-18] MEDS: NS + KCL 20 MEQ INJ 1,000 ML IV SCH ×3 (03:50→11:59)
[2016-07-18 06:04] VITALS: BP 134/76
[2016-07-18 06:49] LABS: HEMATOCRIT 46.6 % (39.0-51.0); MEAN CELL VOLUME 83.6 FL (80.0-100.0); MEAN CORPUSCULAR HEMOGLOBIN 27.7 PG (27.0-34.0); MEAN CORPUSCULAR HGB CONC 33.2 % (32.0-36.0); PLATELET COUNT 232 TH/MM3 (150-450); RED BLOOD COUNT 5.57 MIL/MM3 (4.50-5.90); REVIEW FLAG FINAL
[2016-07-18 07:01] LABS: BICARBONATE 25.9 MEQ/L (21.0-32.0); POTASSIUM 3.2 MEQ/L (3.5-5.1)
[2016-07-18 07:27] VITALS: BP 134/90; PULSE 47; RESP 14; TEMP 98.3; O2SAT 96
[2016-07-18] MEDS ORDERED: PANTOPRAZOLE SODIUM 40 MG VIAL IV PUSH SCH (09:00)
[2016-07-18] MEDS ORDERED: PANTOPRAZOLE SOD 40 MG DELAYED RELEASE TAB PO SCH (09:00)
[2016-07-18] MEDS ORDERED: POTASSIUM CHLORIDE 10 MEQ CONTROLLED RELEASE TAB PO ONE (10:00)
--- NOTE | 2016-07-18 11:24 | EKG ---
Date Performed: 07/17/2016 Time Performed: 09:53:50 PTAGE: 50 years EKG: SINUS BRADYCARDIA BORDERLINE ECG INTERPRETATION BASED ON A DEFAULT AGE OF 40 YEARS NO PREVIOUS TRACING DOCTOR: Newton Garland Interpretating Date/Time 07/18/2016 11:22:36
--- NOTE | 2016-07-18 11:28 | HHI.FPPN ---
Subjective Remarks Pt seen and examined this morning. Pt denies nausea, vomiting, abdominal pain, chest pain. His appetite is decreased, but he has the desire to try to eat something. He reports that he did vomit yesterday. Vomit is nonbloody, nonbilious and consists of previously eaten food. He reports that nausea and vomiting is normally relieved by taking a hot shower. (Landy Harris MD R2) Objective Vitals Vital Signs Date Time Temp Pulse Resp B/P Pulse Ox O2 Delivery O2 Flow Rate FiO2 07/18/16 07:27 98.3 47 14 134/90 96 07/18/16 06:04 134/76 07/18/16 03:37 97.6 80 20 97 07/18/16 00:09 97.8 75 20 134/93 96 07/17/16 19:48 98.0 50 20 123/73 97 07/17/16 17:30 44 171/86 07/17/16 16:16 97.9 45 20 196/99 95 07/17/16 11:34 97.9 41 18 181/100 96 (Landy Harris MD R2) Result Diagram: 07/18/16 0630 07/18/16 0630 Objective Remarks GEN: Well-developed, well-nourished patient. Resting comfortably in bed. CV: Regular rate and rhythm without obvious murmurs LUNGS: Clear to auscultation bilaterally. Normal respiratory effort. No wheezes , rales, rhonchi. GI: Soft, nondistended, +bowel sounds. EXT: No edema. No calf tenderness. NEURO/PSYCH: Awake, alert. Appropriate insight and judgment. Normal speech. Normal gait Procedures Endoscopy which showed gastritis and esophagitis (Landy Harris MD R2) A/P Assessment and Plan 50 y/o male with history of HTN and cyclic vomiting. Admitted for abdominal pain and nausea/vomiting for several days. Discharge Planning Anticipate discharge later today. sdw Dr. Stanford, Dr. Abdalla (Landy Harris MD R2) Attending Attestation Patient seen and examined. Case reviewed and discussed with the resident team. Agree with plan of care as discussed with me and documented in the resident note. he was able to eat prior to D/C and felt well (Maddie Stanford MD) Problem List: (1) Nausea & vomiting Status: Acute Plan: History of cyclic nausea/vomiting every few months. States he has been worked up in the past. Does endorse history of GI ulcer. Was admitted in May and gallbladder etiology was worked up, HIDA scan negative. Umbilical hernia per last CT scan. Etiology me be due to cyclical vomiting vs cannabis hyperemesis -Counseled about marijuana cessation -Abdominal xray: No evidence of obstruction -Gastric emptying: rapid gastric emptying Consult GI: appreciate recs * EGD: Gastritis and esophagitis Medications: * Added Amitriptyline 10mg qHS, no significant improvement in symptoms with this medication * Oxycodone * Acetaminophen IV if unable to take PO * Zofran PRN nausea * Protonix 40mg daily (2) HTN (hypertension) Status: Chronic Plan: -Continue home HCTZ -Enalapril IV PRN (3) FEN/PPX Status: Acute Plan: Fluids: NS+20meq KCl @ 125mls/hr Electrolytes: Hypokalemia, KCL 40meq po x1 Nutrition: regular DVT ppx: SCDs and lovenox GI ppx: Protonix (Landy Harris MD R2) Problem Qualifiers (1) Nausea & vomiting: Qualified Code: G43.A0 - Non-intractable cyclical vomiting with nausea (2) HTN (hypertension): Qualified Code: I10 - Essential hypertension Landy Harris MD R2 Jul 18, 2016 11:28 Maddie Stanford MD Jul 24, 2016 12:45
[2016-07-18] MEDS: SODIUM CHLORIDE 0.9% FLUSH 10 ML FLUSH IV FLUSH SCH (11:30)
[2016-07-18 11:36] VITALS: BP 203/113; PULSE 50; RESP 16; TEMP 99; O2SAT 98
[2016-07-18] MEDS: HYDROCHLOROTHIAZIDE 12.5 MG CAP PO SCH (11:56)
[2016-07-18] MEDS ORDERED: NITR0.4S SL (15:09)
[2016-07-18 15:27] VITALS: BP 126/86; PULSE 56; RESP 16; TEMP 98.6; O2SAT 97
--- NOTE | 2016-08-08 09:01 | HHI.DS ---
Discharge Summary Admission Date Jul 15, 2016 at 12:21 Discharge Date: Jul 18, 2016 Admitting Diagnosis recurrent abdominal pain with nausea vomiting. Hypokalemia (1) Nausea & vomiting Diagnosis: Principal Plan: History of cyclic nausea/vomiting every few months. States he has been worked up in the past. Does endorse history of GI ulcer. Was admitted in May and gallbladder etiology was worked up, HIDA scan negative. Umbilical hernia per last CT scan. Etiology me be due to cyclical vomiting vs cannabis hyperemesis -Counseled about marijuana cessation -Abdominal xray: No evidence of obstruction -Gastric emptying: rapid gastric emptying Consult GI: appreciate recs * EGD: Gastritis and esophagitis Medications: * Added Amitriptyline 10mg qHS, no significant improvement in symptoms with this medication * Oxycodone * Acetaminophen IV if unable to take PO * Zofran PRN nausea * Protonix 40mg daily (2) HTN (hypertension) Diagnosis: Secondary Plan: -Continue home HCTZ -Enalapril IV PRN (3) FEN/PPX Diagnosis: Secondary Plan: Fluids: NS+20meq KCl @ 125mls/hr Electrolytes: Hypokalemia, KCL 40meq po x1 Nutrition: regular DVT ppx: SCDs and lovenox GI ppx: Protonix Consult[facility] GI Procedures Endoscopy which showed gastritis and esophagitis Brief History Mr Mckeon is a 50 y/o male with history of HTN, presented with nausea/vomiting. States he came in Monday to the ED with nausea and vomiting. Received some treatment and was discharged home. Had recurrent vomiting since then. Started again evening. Vomited 10 times or more. Says it has been red-tinged, no red-foods. Hadn't eaten since Monday, ate oatmeal, got sick after. Tried drinking and eating, but couldn't keep it down. No bowel movement since Monday. No diarrhea. Urinating normally. States he has pain in his abdomen/both sides and radiated up to his chest. Can't pinpoint a specific side of his abdomen, but usually diffuse. Vomiting sometimes makes the pain better. He usually has to go to hospital to get pain medication that will resolve the process. Doesn't have a GI doctor. Has had an EGD, colonoscopy few months ago, which were negative. First episode was in 2010. Was told he had an ulcer in the past with EGD in [place]. Has been told he had a duodenal hernia as well. These spells occur every couple months. States they usually start in the morning, starts having cramps. Hasn't noticed correlation with foods or alcohol. Usually lasts 3-4 days. Last smoked marijuana on Monday, symptoms started Monday. He goes to the [facility], is visiting from [place], [place]. Has had abdominal surgery in the past with hernia repair, states he sometimes it bulges out. He was feeling back to normal this am. he tolerated the radioactive egg on the gastric emptying study perfectly and had rapid transit times , not slowed. He has had no further vomiting and has not seen any blood in his stools and no further blood seen. He is scheduled for EGD based on the history of ulcers and also the visible blood in his vomitus. Imaging Last Impressions Gastric Emptying Nuclear Medicine 07/15/16 0000 Signed Impressions: Service Date/Time: Friday, July 15, 2016 15:16 - CONCLUSION: Rapid gastric emptying Yony Monzon MD FACR Abdomen X-Ray 07/15/16 0000 Signed Impressions: Service Date/Time: Friday, July 15, 2016 10:54 - CONCLUSION: 1. No evidence of obstruction. Cesar Murguia MD PE at Discharge GEN: Well-developed, well-nourished patient. Resting comfortably in bed. CV: Regular rate and rhythm without obvious murmurs LUNGS: Clear to auscultation bilaterally. Normal respiratory effort. No wheezes , rales, rhonchi. GI: Soft, nondistended, +bowel sounds. EXT: No edema. No calf tenderness. NEURO/PSYCH: Awake, alert. Appropriate insight and judgment. Normal speech. Normal gait Hospital Course Mr. Mckeon is a 50 y/o male with past history of hypertension, who presented to ED with nausea/vomiting. He has a history of cyclic nausea/vomiting for the last six years. He gets these episodes every few months. Pt did present with bloody emesis, however hemoglobin was stable. Pt did have history positive for marijuana use. GI was consulted. Gastric emptying study was performed, which showed increased transit time. Protonix was started, along with other supported medications. GI performed an endoscopy, which showed esophagitis and gastritis. Recommended continued PPI. Pt improved the next day, however the next day had another episode of nausea/vomiting, diaphoresis, and some upper abdominal pain. EKG and troponin were ordered to rule out cardiac etiology, which were negative. No significant improvement with nitroglycerin or amitriptyline. Pt improved and then discharged in stable condition. Unsure etiology, may be due to marijuana use. Pt continued on protonix and to follow-up with PCP and GI. Pt Condition on Discharge: Stable Discharge Disposition: Discharge Home Discharge Instructions DIET: Follow Instructions for: As Tolerated, No Restrictions Activities you can perform: Regular-No Restrictions Follow up Referrals: GI/CRS Colonoscopy - 1 Week with Alejandro Dickinson MD Physician - 1 Week New Medications: Pantoprazole (Protonix) 40 Mg Tab 40 MG PO DAILY Reflux #30 Ref 0 TAB Nitroglycerin SL (Nitrostat SL) 0.4 Mg Subl 0.4 MG SL Q5M PRN DISCOMFORT #20 TAB Continued Medications: Hydrochlorothiazide (Hydrochlorothiazide) 12.5 Mg Cap 10 MG PO DAILY #60 Ref 0 CAP Rio Abreu MD R1 Aug 08, 2016 09:01
== END 2016-07-18 16:40 | disposition home or self-care (01) ==
LOC: NEPA 09:44 → NEDA 12:21 → NEPGCP 18:09
PROVIDERS: ADMIT Family Medicine; ATTEND Family Medicine
DX: K29.50 Unspecified chronic gastritis without bleeding (principal); K20.9 Esophagitis, unspecified; E87.6 Hypokalemia; D72.829 Elevated white blood cell count, unspecified; I10 Essential (primary) hypertension; J45.909 Unspecified asthma, uncomplicated; F17.200 Nicotine dependence, unspecified, uncomplicated; Z87.11 Personal history of peptic ulcer disease
CPT/HCPCS: 00740; 43239; 74020; 78264; 80048; 80053; 80307; 81001; 83690; 84484; 85025; 85027; 85610; 85730; 88305; 88312; 93005; 96374; 96375; 99285; A9541; C9113; G0378; J0131; J1650; J2270; J2405; J2765; J3480; J7030

== ENCOUNTER 2016-08-10 20:07 | Observation (INO) | payer OTHER ==
[~2016-08-10] VITALS: Ht 167.6 cm; Wt 96.0 kg
[~2016-08-10 20:07] MED LIST changes: +NITR0.4S SL; +PROT40TA PO
[2016-08-10 20:21] VITALS: BP 188/100; PULSE 95; RESP 21; TEMP 98.9; O2SAT 96
[2016-08-10] MEDS ORDERED: SODIUM CHLOR 0.9% 1000 ML INJ 1,000 ML IV SCH (20:33)
--- NOTE | 2016-08-10 20:43 | PD ---
HPI Chief Complaint: Abdominal Pain Time Seen by Provider: 20:26 Travel History International Travel<30 days: No Contact w/Intl Traveler<30days: No Traveled to known affect area: No History of Present Illness HPI 50-year-old male complains of abdominal pain with nausea vomiting. Patient has history of cyclical nausea vomiting abdominal pain. Patient has history of gastritis and esophagitis. She also has history of umbilical hernia. Patient states that he started having abdominal cramping with nausea vomiting since yesterday. Patient states the pain is severe cramping pain diffuse over the abdomen. Patient denies any pain radiation. Patient denies any fever chills. Patient denies any dysuria or frequency. Patient denies any back pain. Patient has history hypertension, asthma. Patient was admitted to [facility] July 15 and discharged July 18 for recurrent abdominal pain with nausea vomiting and hypokalemia. GI consultation was obtained. EGD showed gastritis and esophagitis. Etiology of abdominal pain with nausea vomiting unknown. Gastric emptying study shows rapid gastric emptying. Patient was advised marijuana cessation as a possible cause of his symptoms. Patient was advised to take Protonix 40 mg daily and HCTZ 12.5 mg daily. On a scale of 1- 10 the pain is a 10. PFSH Past Medical History Asthma: Yes Blood Disorders: No Heart Rhythm Problems: No Cancer: No Cardiovascular Problems: Yes High Cholesterol: No Chest Pain: No Congestive Heart Failure: No COPD: No Diabetes: No Diminished Hearing: No Endocrine: No Gastrointestinal Disorders: Yes Genitourinary: No Hypertension: Yes Immune Disorder: No Musculoskeletal: No Neurologic: No Psychiatric: No Reproductive: No Respiratory: Yes Sleep Apnea: No Tetanus Vaccination: Unknown Influenza Vaccination: No Past Surgical History Abdominal Surgery: Yes (HERNIA REPAIR) Other Surgery: Yes Social History Alcohol Use: Yes Tobacco Use: Yes Substance Use: Yes (MARIJUANA) Allergies-Medications (Allergen,Severity, Reaction): Coded Allergies: No Known Allergies (Unverified , 05/22/16) Reported Meds & Prescriptions Reported Meds & Active Scripts Active Nitrostat SL (Nitroglycerin) 0.4 Mg Subl 0.4 Mg SL Q5M PRN Protonix (Pantoprazole Sodium) 40 Mg Tab 40 Mg PO DAILY Reported Hydrochlorothiazide 12.5 Mg Cap 10 Mg PO DAILY Review of Systems General / Constitutional: No: Fever Eyes: No: Visual changes HENT: No: Headaches Cardiovascular: No: Chest Pain or Discomfort Respiratory: No: Shortness of Breath Gastrointestinal: Positive: Nausea, Vomiting, Abdominal Pain Genitourinary: No: Dysuria Musculoskeletal: No: Pain Skin: No Rash Neurologic: No: Weakness Psychiatric: No: Depression Endocrine: No: Polydipsia Hematologic/Lymphatic: No: Easy Bruising Physical Exam Narrative GENERAL: Well-nourished, well-developed patient. SKIN: Focused skin assessment warm/dry. HEAD: Normocephalic. EYES: No scleral icterus. No injection or drainage. NECK: Supple, trachea midline. No JVD or lymphadenopathy. CARDIOVASCULAR: Regular rate and rhythm without murmurs, gallops, or rubs. RESPIRATORY: Breath sounds equal bilaterally. No accessory muscle use. GASTROINTESTINAL: Abdomen soft, nondistended. Patient has diffuse tenderness over the abdomen. No rebound tenderness. No mass. MUSCULOSKELETAL: No cyanosis, or edema. BACK: Nontender without obvious deformity. No CVA tenderness. Neurologic exam normal. Data Data Last Documented VS Vital Signs Date Time Temp Pulse Resp B/P Pulse Ox O2 Delivery O2 Flow Rate FiO2 08/10/16 20:46 21 99 Room Air 08/10/16 20:21 98.9 95 188/100 Orders Complete Blood Count With Diff (08/10/16 20:33) Comprehensive Metabolic Panel (08/10/16 20:33) Lipase (08/10/16 20:33) Prothrombin Time / Inr (Pt) (08/10/16 20:33) Act Partial Throm Time (Ptt) (08/10/16 20:33) Urinalysis - C+S If Indicated (08/10/16 20:33) Abdomen, Flat & Upright (08/10/16 ) Iv Access Insert/Monitor (08/10/16 20:33) Ecg Monitoring (08/10/16 20:33) Oximetry (08/10/16 20:33) Ondansetron Inj (Zofran Inj) (08/10/16 20:45) Pantoprazole Inj (Protonix Inj) (08/10/16 20:45) Sodium Chlor 0.9% 1000 Ml Inj (Ns 1000 M (08/10/16 20:33) Ketorolac Inj (Toradol Inj) (08/10/16 20:45) Drug Screen, Random Urine (08/10/16 20:36) Diphenhydramine Inj (Benadryl Inj) (08/10/16 21:00) Metoclopramide Inj (Reglan Inj) (08/10/16 21:00) Ct Abd/Pel W/O Iv Contrast (08/10/16 21:56) Labs Laboratory Tests Test 08/10/16 20:15 White Blood Count 18.1 TH/MM3 Red Blood Count 6.12 MIL/MM3 Hemoglobin 16.7 GM/DL Hematocrit 51.1 % Mean Corpuscular Volume 83.4 FL Mean Corpuscular Hemoglobin 27.2 PG Mean Corpuscular Hemoglobin 32.7 % Concent Red Cell Distribution Width 15.0 % Platelet Count 295 TH/MM3 Mean Platelet Volume 8.0 FL Neutrophils (%) (Auto) 81.5 % Lymphocytes (%) (Auto) 12.5 % Monocytes (%) (Auto) 5.6 % Eosinophils (%) (Auto) 0.1 % Basophils (%) (Auto) 0.3 % Neutrophils # (Auto) 14.8 TH/MM3 Lymphocytes # (Auto) 2.3 TH/MM3 Monocytes # (Auto) 1.0 TH/MM3 Eosinophils # (Auto) 0.0 TH/MM3 Basophils # (Auto) 0.1 TH/MM3 CBC Comment DIFF FINAL Differential Comment Prothrombin Time 11.6 SEC Prothromb Time International 1.0 RATIO Ratio Activated Partial 27.5 SEC Thromboplast Time Sodium Level 135 MEQ/L Potassium Level 3.7 MEQ/L Chloride Level 89 MEQ/L Carbon Dioxide Level 34.4 MEQ/L Anion Gap 12 MEQ/L Blood Urea Nitrogen 26 MG/DL Creatinine 1.75 MG/DL Estimat Glomerular Filtration 50 ML/MIN Rate Random Glucose 107 MG/DL Calcium Level 10.7 MG/DL Total Bilirubin 0.7 MG/DL Aspartate Amino Transf 29 U/L (AST/SGOT) Alanine Aminotransferase 27 U/L (ALT/SGPT) Alkaline Phosphatase 89 U/L Total Protein 8.8 GM/DL Albumin 4.3 GM/DL Lipase 178 U/L [facility] Medical Decision Making Medical Screen Exam Complete: Yes Emergency Medical Condition: Yes Medical Record Reviewed: Yes Interpretation(s) Last Impressions Abdomen X-Ray 08/10/16 0000 Signed Impressions: Service Date/Time: Wednesday, August 10, 2016 20:49 - CONCLUSION: Benign-appearing abdomen. No evidence of ileus. Keyshawn Adhikari MD 22:[address] scan abdomen pelvis shows no acute process. Fat-containing umbilical hernia unchanged. 22:56 PM. CBC WBC 18.1. Hemoglobin 16.7 hematocrit 51.1. 81 neutrophil. Sodium 135. Bicarbonate 34.4. BUN 26. Creatinine 1.75. GFR 50. Calcium 10.7. Differential Diagnosis Differential diagnosis including gastritis, PUD, pancreatitis, cholecystitis, colitis, UTI, pyelonephritis, nephrolithiasis, electrolyte abnormality, dehydration. Narrative Course 50-year-old male with recurrent abdominal pain, nausea vomiting. GI workup has been negative except for gastritis and esophagitis. Normal saline solution 1 L IV bolus. Zofran 4 mg IV. Protonix 40 mg IV. Toradol 30 mg IV. Diagnosis Primary Impression: Abdominal pain Qualified Code: R10.9 - Abdominal pain, unspecified location Additional Impressions: Acute renal injury Cyclical vomiting with nausea Qualified Code: G43.A1 - Intractable cyclical vomiting with nausea Admitting Information Admitting Physician Requests: Admit Misael Wong MD Aug 10, 2016 20:42
[2016-08-10] MEDS ORDERED: KETOROLAC TROMETHAMINE 30 MG/ML (IVP) VIAL IVP ONE (20:45)
[2016-08-10] MEDS ORDERED: ONDANSETRON HCL 4 MG/2 ML VIAL IVP ONE (20:45)
[2016-08-10] MEDS ORDERED: PANTOPRAZOLE SODIUM 40 MG VIAL IVP ONE (20:45)
[2016-08-10 20:46] VITALS: RESP 21; O2SAT 99
[2016-08-10] MEDS ORDERED: diphenhydrAMINE HCL 50 MG/ML VIAL IV PUSH ONE (21:00)
[2016-08-10] MEDS ORDERED: METOCLOPRAMIDE HCL 10 MG/2 ML VIAL IV PUSH ONE (21:00)
--- NOTE | 2016-08-10 21:14 | RADRPT ---
EXAM DATE/TIME: 08/10/2016 20:49 [facility] COMPARISON: No previous studies available for comparison. INDICATIONS : Lower abdominal pain. MEDICAL HISTORY : None. SURGICAL HISTORY : Hernia repair. ENCOUNTER: Initial ACUITY: 1 day PAIN SCORE: 10/10 LOCATION: Abdomen FINDINGS: Supine and upright views of the abdomen were performed. The abdominal bowel gas pattern is normal. No air fluid levels are seen. No abnormal masses, calcifications, or organomegaly is seen. The visu alized lower lungs are clear. No evidence of free intraperitoneal gas. The osseous structures are u nremarkable. CONCLUSION: Benign-appearing abdomen. No evidence of ileus. Keyshawn Adhikari MD on August 10, 2016 at 21:12 Board Certified Radiologist. This report was verified electronically.
[2016-08-10 21:19] LABS: AUTOMATED NEUTROPHIL # 14.8 TH/MM3 (1.8-7.7); BASOPHIL # 0.1 TH/MM3 (0-0.2); BASOPHIL % 0.3 % (0.0-2.0); EOSINOPHIL % 0.1 % (0.0-4.0); HEMATOCRIT 51.1 % (39.0-51.0); HEMO FLAGS DIFF FINAL; LYMPH % 12.5 % (9.0-44.0); LYMPHOCYTE # 2.3 TH/MM3 (1.0-4.8); MEAN CELL VOLUME 83.4 FL (80.0-100.0); MEAN CORPUSCULAR HEMOGLOBIN 27.2 PG (27.0-34.0); MEAN CORPUSCULAR HGB CONC 32.7 % (32.0-36.0); MONO % 5.6 % (0.0-8.0); NEUT % 81.5 % (16.0-70.0); PLATELET COUNT 295 TH/MM3 (150-450); RED BLOOD COUNT 6.12 MIL/MM3 (4.50-5.90); WHITE BLOOD COUNT 18.1 TH/MM3 (4.0-11.0)
[2016-08-10 21:30] LABS: APTT (PATIENT) 27.5 SEC (24.3-30.1); PROTHROMBIN TIME - PATIENT 11.6 SEC (9.8-11.6)
[2016-08-10 21:34] LABS: ANION GAP 12 MEQ/L (5-15); AST (GOT) 29 U/L (15-37); BICARBONATE 34.4 MEQ/L (21.0-32.0); BLOOD UREA NITROGEN 26 MG/DL (7-18); CHLORIDE 89 MEQ/L (98-107); GLOMERULAR FILTRATION RATE 50 ML/MIN (>89); POTASSIUM 3.7 MEQ/L (3.5-5.1); SODIUM (NA) 135 MEQ/L (136-145)
[2016-08-10 21:39] LABS: ALKALINE PHOSPHATASE 89 U/L (45-117); ALT (GPT) 27 U/L (12-78); TOTAL BILIRUBIN ADULT 0.7 MG/DL (0.2-1.0)
--- NOTE | 2016-08-10 22:38 | RADRPT ---
EXAM DATE/TIME: 08/10/2016 22:08 [facility] COMPARISON: CT ABDOMEN & PELVIS W CONTRAST, July 14, 2016, 2:04. CT ABDOMEN & PELVIS W/O CONTRAST, May 22, 2016, 16:52. INDICATIONS : Diffuse abdominal pain, nausea and vomiting. ORAL CONTRAST: No oral contrast ingested. RADIATION DOSE: 12.69 CTDIvol (mGy) MEDICAL HISTORY : Hypertension. SURGICAL HISTORY : Hernia repair. ENCOUNTER: Initial ACUITY: 2 days PAIN SCALE: 10/10 LOCATION: All quadrants. TECHNIQUE: Volumetric scanning of the abdomen and pelvis was performed. Using automated exposure control and ad justment of the mA and/or kV according to patient size, radiation dose was kept as low as reasonably achievable to obtain optimal diagnostic quality images. FINDINGS: LOWER LUNGS: The visualized lower lungs are clear. LIVER: Homogeneous density without lesion. There is no dilation of the biliary tree. No calcified gallston es. SPLEEN: Normal size without lesion. PANCREAS: Within normal limits. KIDNEYS: Normal in size and shape. There is no mass, stone, or hydronephrosis. ADRENAL GLANDS: Within normal limits. VASCULAR: There is no aortic aneurysm. BOWEL/MESENTERY: The stomach, small bowel, and colon demonstrate no acute abnormality. There is no free intraperitone al air or fluid. The appendix is well-visualized, normal. ABDOMINAL WALL: Hernia just to the left of the umbilicus again noted. The defect measures about 18 mm across and ther e is a 3 cm accumulation of herniated fat. This is unchanged. RETROPERITONEUM: There is no lymphadenopathy. BLADDER: No wall thickening or mass. REPRODUCTIVE: Within normal limits. INGUINAL: There is no lymphadenopathy or hernia. MUSCULOSKELETAL: There are chronic bilateral pars defects of L5. There is grade 1 spondylolisthesis of L5 on S1. CONCLUSION: 1. No obstruction, inflammatory changes or other acute abnormality. 2. Fat-containing umbilical hernia unchanged. 3. L5 chronic appearing spondylolysis with grade one L5/S1 spondylolisthesis. Keyshawn Adhikari MD on August 10, 2016 at 22:33 Board Certified Radiologist. This report was verified electronically.
[2016-08-10] MEDS ORDERED: NALOXONE HCL 0.4 MG/ML AMP IV PRN (23:30)
[2016-08-10] MEDS ORDERED: ONDANSETRON HCL 4 MG/2 ML VIAL IVP PRN (23:30)
[2016-08-10] MEDS ORDERED: SODIUM CHLORIDE 0.9% FLUSH 10 ML FLUSH IV FLUSH PRN (23:30)
[2016-08-10] MEDS: SODIUM CHLOR 0.9% 1000 ML INJ 1,000 ML IV SCH (23:47)
[2016-08-11] VITALS (10 sets, daily range): BP systolic 129–198; BP diastolic 77–120; PULSE 49–70; RESP 16–22; TEMP 98–99.3; O2SAT 96–99
[2016-08-11] MEDS: MORPHINE SULFATE 4 MG/ML INJ IV PUSH PRN ×5 (02:57→20:51)
--- NOTE | 2016-08-11 04:31 | HHI.HP ---
HPI Service [facility] Primary Care Physician No Primary Care Physician Admission Diagnosis abdominal pain. Cyclical vomiting and nausea. Acute renal injury Diagnoses: Chief Complaint: N/V/D with abd pain Travel History International Travel<30 Days: No Contact w/Intl Traveler <30 Da: No Traveled to Known Affected Are: No History of Present Illness This is a 50-year-old [place] male patient with past medical history which includes asthma which she uses rescue inhaler, hypertension treated with hydrochlorothiazide and cyclic vomiting syndrome. Patient reports he ate seafood salad about 2-3 days ago. Reports nausea, vomiting and liquid stools for the past 2-3 days. Nausea/vomiting/diarrhea associated with diaphoresis hot flashes and cold sweats- which have resolved at this time Patient reports that he started having severe cramping abd pain which started yesterday. The abdominal pain is generalized through out abdomen. Abdominal pain resolved after morphine IV. Vomiting improved with Zofran and bowel rest. Patient does report red color to vomit denies coffee ground appearance to emesis. Denies black tarry stool or red blood in stool. Per ER documentation: EGD showed gastritis and esophagitis. Gastric emptying study shows rapid gastric emptying. Patient denies fevers chest pain or shortness of breath. HTN, asthma, cyclic vomiting syndrome Sx: eye socket , finger R hand surgery, hernia repair x 2 Tobacco use smokes 0.5 PPD, has 37 pack year history ETOH use 1-2 beers occasionally not on a daily basis marijuana occasionally Mother-HD Siblings-healthy vomiting with abd pain (cyclic vomiting syndrome vs gastroenteritis) dehydration secondary to vomiting HANS likely secondary to dehydration DVT SCDs discussed with ER provider, nursing and patient Written by Eva Montes, acting as scribe for Dr. Addison on 08/11/16 at 04: 30. Review of Systems Except as stated in HPI: all other systems reviewed are Neg Past Family Social History Past Medical History HTN, asthma, cyclic vomiting syndrome Past Surgical History eye socket sx, finger R hand surgery, hernia repair x 2 Reported Medications Nitrostat SL (Nitroglycerin) 0.4 Mg Subl 0.4 Mg SL Q5M PRN Protonix (Pantoprazole Sodium) 40 Mg Tab 40 Mg PO DAILY Hydrochlorothiazide 12.5 Mg Cap 10 Mg PO DAILY Allergies: Coded Allergies: No Known Allergies (Unverified , 05/22/16) Active Ordered Medications Current Medications Medications (Trade) Dose Ordered Sig/Nessa Route Start Time Stop Time Status Last Admin (NS 1000 ml Inj) 1,000 ml @ 100 mls/hr Q10H IV 08/10/16 23:28 08/10/16 23:47 (NS Flush) 2 ml UNSCH PRN IV FLUSH 08/10/16 23:30 (NS Flush) 2 ml BID IV FLUSH 08/11/16 09:00 (Zofran Inj) 4 mg Q6H PRN IVP 08/10/16 23:30 (Narcan Inj) 0.4 mg UNSCH PRN IV 08/10/16 23:30 (Morphine Inj) 2 mg Q3H PRN IV PUSH 08/11/16 02:45 08/11/16 02:57 Family History Mother-HD Siblings-healthy Social History Tobacco use smokes 0.5 PPD, has 37 pack year history ETOH use 1-2 beers occasionally not on a daily basis marijuana occasionally Physical Exam Vital Signs Vital Signs Date Time Temp Pulse Resp B/P Pulse Ox O2 Delivery O2 Flow Rate FiO2 08/11/16 04:05 149/89 08/11/16 03:31 51 08/11/16 02:00 198/120 08/11/16 01:22 99.3 60 20 189/110 99 08/11/16 00:00 68 16 141/77 98 Room Air 08/10/16 20:46 21 99 Room Air 08/10/16 20:23 21 08/10/16 20:21 98.9 95 21 188/100 96 Physical Exam GENERAL: This is a well-nourished, well-developed patient, in no apparent distress at this time resting comfortably SKIN: No rashes, ecchymoses or lesions. Cool and dry. HEAD: Atraumatic. Normocephalic. No temporal or scalp tenderness. EYES: Extraocular motions intact. No scleral icterus. No injection or drainage. CARDIOVASCULAR: Regular rate and rhythm without murmurs, gallops, or rubs. RESPIRATORY: Clear to auscultation. Breath sounds equal bilaterally. No wheezes , rales, or rhonchi. GASTROINTESTINAL: Abdomen soft, tender through out, nondistended. voluntary guarding. MUSCULOSKELETAL: Extremities without clubbing, cyanosis, or edema. No joint tenderness, effusion, or edema noted. No calf tenderness. Negative Homans sign bilaterally. NEUROLOGICAL: Awake and alert. Motor and sensory grossly within normal limits. Five out of 5 muscle strength in all muscle groups. Normal speech. Laboratory Laboratory Tests Test 08/10/16 20:15 White Blood Count 18.1 Red Blood Count 6.12 Hemoglobin 16.7 Hematocrit 51.1 Mean Corpuscular Volume 83.4 Mean Corpuscular Hemoglobin 27.2 Mean Corpuscular Hemoglobin 32.7 Concent Red Cell Distribution Width 15.0 Platelet Count 295 Mean Platelet Volume 8.0 Neutrophils (%) (Auto) 81.5 Lymphocytes (%) (Auto) 12.5 Monocytes (%) (Auto) 5.6 Eosinophils (%) (Auto) 0.1 Basophils (%) (Auto) 0.3 Neutrophils # (Auto) 14.8 Lymphocytes # (Auto) 2.3 Monocytes # (Auto) 1.0 Eosinophils # (Auto) 0.0 Basophils # (Auto) 0.1 CBC Comment DIFF FINAL Differential Comment Prothrombin Time 11.6 Prothromb Time International 1.0 Ratio Activated Partial 27.5 Thromboplast Time Sodium Level 135 Potassium Level 3.7 Chloride Level 89 Carbon Dioxide Level 34.4 Anion Gap 12 Blood Urea Nitrogen 26 Creatinine 1.75 Estimat Glomerular Filtration 50 Rate Random Glucose 107 Calcium Level 10.7 Total Bilirubin 0.7 Aspartate Amino Transf 29 (AST/SGOT) Alanine Aminotransferase 27 (ALT/SGPT) Alkaline Phosphatase 89 Total Protein 8.8 Albumin 4.3 Lipase 178 Result Diagram: 08/10/16201408/10/162014 Imaging Last Impressions Abdomen/Pelvis CT 08/10/16 2156 Signed Impressions: Service Date/Time: Wednesday, August 10, 2016 22:08 - CONCLUSION: 1. No obstruction, inflammatory changes or other acute abnormality. 2. Fat- containing umbilical hernia unchanged. 3. L5 chronic appearing spondylolysis with grade one L5/S1 spondylolisthesis. Keyshawn Adhikari MD Abdomen X-Ray 08/10/16 0000 Signed Impressions: Service Date/Time: Wednesday, August 10, 2016 20:49 - CONCLUSION: Benign-appearing abdomen. No evidence of ileus. Keyshawn Adhikari MD Assessment and Plan Problem List: (1) HANS (acute kidney injury) ICD Code: N17.9 Status: Acute (2) Abdominal pain ICD Code: R10.9 Status: Acute (3) Dehydration ICD Code: E86.0 Status: Acute (4) Cyclical vomiting with nausea ICD Code: G43.A0 Status: Chronic Assessment and Plan This is a 50-year-old [place] male patient with past medical history which includes asthma which she uses rescue inhaler, hypertension treated with hydrochlorothiazide and cyclic vomiting syndrome. Patient reports he ate seafood salad about 2-3 days ago. Reports nausea, vomiting and liquid stools for the past 2-3 days. Nausea/vomiting/diarrhea associated with diaphoresis hot flashes and cold sweats- which have resolved at this time Patient reports that he started having severe cramping abd pain which started yesterday. The abdominal pain is generalized through out abdomen. Abdominal pain resolved after morphine IV. Vomiting improved with Zofran and bowel rest. Patient does report red color to vomit denies coffee ground appearance to emesis. Denies black tarry stool or red blood in stool. Per ER documentation: EGD showed gastritis and esophagitis. 07/15/2016 Gastric emptying study shows rapid gastric emptying. Patient denies fevers chest pain or shortness of breath. vomiting with abd pain (cyclic vomiting syndrome vs gastroenteritis) CT abdomen and pelvis reviewed by myself as well as Dr. Addison reveals No obstruction, inflammatory changes or other acute abnormality. Fat-containing umbilical hernia unchanged. 3. L5 chronic appearing spondylolysis with grade one L5/S1 spondylolisthesis. Abdominal x-ray reviewed by myself as well as Dr. Addison reveals Benign- appearing abdomen. No evidence of ileus Supportive care, Longs and morphine IV as needed for pain IV fluids Zofran as needed Continue Protonix 40 mg daily dehydration secondary to vomiting Continue IV fluids HANS likely secondary to dehydration Hold HCTZ at this time Continue IV fluids Recheck in a.m. DVT prophylaxis with SCDs discussed with ER provider, nursing and patient Written by Eva Montes, acting as scribe for Dr. Addison on 08/11/16 at 04: 30. This note was transcribed by scribe [Eva Montes]. I, Dr. Qi Addison personally performed the history, physical exam, and medical decision making; and confirmed the accuracy of the information in the transcribed note. Authenticated by Dr. Qi Addison on 08/11/16 at 04:30. Problem Qualifiers (1) Abdominal pain: Qualified Code: R10.9 - Abdominal pain, unspecified location Eva Montes Aug 11, 2016 04:31 Qi Addison MD August 15, 2016 07:18
[2016-08-11 05:27] LABS: BASOPHIL % 0.2 % (0.0-2.0); EOSINOPHIL % 0.1 % (0.0-4.0); HEMO FLAGS DIFF FINAL; LYMPHOCYTE # 1.5 TH/MM3 (1.0-4.8); MEAN CELL VOLUME 83.3 FL (80.0-100.0); MEAN CORPUSCULAR HEMOGLOBIN 27.9 PG (27.0-34.0); MEAN CORPUSCULAR HGB CONC 33.5 % (32.0-36.0); NEUT % 79.7 % (16.0-70.0); PLATELET COUNT 268 TH/MM3 (150-450); RED CELL DISTRIBUTION WIDTH 15.1 % (11.6-17.2)
[2016-08-11 05:53] LABS: ALKALINE PHOSPHATASE 74 U/L (45-117); ALT (GPT) 22 U/L (12-78); ANION GAP 10 MEQ/L (5-15); AST (GOT) 17 U/L (15-37); BICARBONATE 32.3 MEQ/L (21.0-32.0); BLOOD UREA NITROGEN 29 MG/DL (7-18); CHLORIDE 97 MEQ/L (98-107); GLOMERULAR FILTRATION RATE 48 ML/MIN (>89); POTASSIUM 3.1 MEQ/L (3.5-5.1); SODIUM (NA) 139 MEQ/L (136-145); TOTAL BILIRUBIN ADULT 0.5 MG/DL (0.2-1.0)
[2016-08-11] MEDS ORDERED: POTASSIUM CHLORIDE 20 MEQ CONTROLLED RELEASE TAB PO ONE (07:45)
[2016-08-11 08:22] LABS: CREATINE KINASE 315 U/L (39-308); MAGNESIUM 2.2 MG/DL (1.5-2.5)
[2016-08-11] MEDS: PANTOPRAZOLE SOD 40 MG DELAYED RELEASE TAB PO SCH (08:34)
[2016-08-11] MEDS: SODIUM CHLOR 0.9% 1000 ML INJ 1,000 ML IV SCH ×2 (08:35→19:28)
[2016-08-11] MEDS: SODIUM CHLORIDE 0.9% FLUSH 10 ML FLUSH IV FLUSH SCH ×2 (08:35→21:00)
--- NOTE | 2016-08-11 08:43 | HHI.PR ---
Subjective Remarks Follow-up for vomiting and abdominal pain. The patient still has right-sided abdominal cramping and epigastric sharp pain. His nausea has improved and he's been able to tolerate water overnight. He states she's been having intractable vomiting for the past 2-3 days. He states that this started after he ate seafood salad. He states he had one episode of loose stool just today, otherwise no diarrhea. He has not been taking any PPI, only medicine for blood pressure. He does smoke tobacco and marijuana daily. He does not feel that the vomiting is due to marijuana, attributes vomiting to the seafood salad. Objective Vitals Vital Signs Date Time Temp Pulse Resp B/P Pulse Ox O2 Delivery O2 Flow Rate FiO2 08/11/16 07:56 98.2 63 20 129/83 96 08/11/16 04:05 149/89 08/11/16 03:31 51 08/11/16 03:05 20 08/11/16 02:00 198/120 08/11/16 01:22 99.3 60 20 189/110 99 08/11/16 00:00 68 16 141/77 98 Room Air 08/10/16 20:46 21 99 Room Air 08/10/16 20:23 21 08/10/16 20:21 98.9 95 21 188/100 96 Result Diagram: 08/11/16 0507 08/11/16 0507 Imaging Last Impressions Abdomen/Pelvis CT 08/10/162155 Signed Impressions: Service Date/Time: Wednesday, August 10, 2016 22:08 - CONCLUSION: 1. No obstruction, inflammatory changes or other acute abnormality. 2. Fat- containing umbilical hernia unchanged. 3. L5 chronic appearing spondylolysis with grade one L5/S1 spondylolisthesis. Keyshawn Adhikari MD Abdomen X-Ray 08/10/16 0000 Signed Impressions: Service Date/Time: Wednesday, August 10, 2016 20:49 - CONCLUSION: Benign-appearing abdomen. No evidence of ileus. Keyshawn Adhikari MD Objective Remarks GENERAL: Well-developed well-nourished. In no acute distress. SKIN: Warm and dry. No lesions noted. HEENT: Normocephalic. Pupils equal and round. Mucous membranes pink and moist. CARDIOVASCULAR: Regular rate and rhythm. No murmur appreciated. RESPIRATORY: No accessory muscle use. Clear to auscultation. Breath sounds equal bilaterally. GASTROINTESTINAL: Abdomen soft, right abdomen and epigastric TTP, nondistended. Bowel sounds x4. MUSCULOSKELETAL: No obvious deformities. No clubbing or cyanosis. No edema. NEUROLOGICAL: Awake and alert. No focal neurological deficits. Moves upper and lower extremities spontaneously. Normal speech. PSYCHIATRIC: Appropriate mood and affect; insight and judgment normal. A/P Problem List: (1) HANS (acute kidney injury) ICD Code: N17.9 Status: Acute (2) Abdominal pain ICD Code: R10.9 Status: Acute (3) Dehydration ICD Code: E86.0 Status: Acute (4) Cyclical vomiting with nausea ICD Code: G43.A0 Status: Chronic Assessment and Plan This is a 50-year-old male patient with past medical history which includes asthma which he uses rescue inhaler, hypertension treated with hydrochlorothiazide and cyclic vomiting syndrome. Patient reports he ate seafood salad about 2-3 days ago. Reports nausea, vomiting and liquid stools for the past 2-3 days. Patient reports that he started having severe cramping abd pain which started the day of admission. Right sided and epigastric abdominal pain. Intractable nausea and vomiting Patient with multiple previous admissions for the same with extensive workup. Noncompliant with PPI and marijuana use. Reviewed records from previous hospitalizations: EGD showed gastritis and esophagitis with pathology confirming the same. Gastric emptying study shows rapid gastric emptying. Gallbladder ultrasound showed gallbladder sludge, with unremarkable HIDA scan. On this admission reviewed CT abdomen and pelvis which showed no obstruction, inflammatory changes or other acute abnormality and fat-containing umbilical hernia unchanged. Abdominal x-ray with benign-appearing abdomen and no evidence of ileus. Lipase and LFTs within normal limits. IVF Antiemetics as needed Pain control with IV morphine Resume PPI Start Carafate Recommended marijuana holiday, although the patient is not interested Acute kidney injury. Dehydration secondary to vomiting Reviewed: Creatinine currently ~1.8, previously 1.04 on 07/18/16. Checked CPK, only minimally elevated Continue IVF and follow-up BMP Hold home HCTZ Hyperkalemia: Secondary to vomiting. Replace orally. Checked magnesium which is in normal limits. Hypertension: Chronic. Hold HCTZ. Clonidine as needed. DVT prophylaxis with SCDs Problem Qualifiers (1) Abdominal pain: Qualified Code: R10.9 - Abdominal pain, unspecified location Long,Neftali D. PA Aug 11, 2016 08:43 Vera Joy MD Aug 11, 2016 15:03
[2016-08-11 08:57] LABS: CKMB 1.5 NG/ML (0.5-3.6)
[2016-08-11] MEDS ORDERED: cloNIDine HCL 0.1 MG TAB PO PRN (09:00)
[2016-08-11] MEDS: SUCRALFATE 1 GM/10 ML CUP PO SCH ×3 (10:31→21:00)
[2016-08-12 04:25] VITALS: BP 140/75; PULSE 48; RESP 19; TEMP 98.1; O2SAT 96
[2016-08-12] MEDS: SODIUM CHLOR 0.9% 1000 ML INJ 1,000 ML IV SCH ×2 (05:28→14:33)
[2016-08-12] MEDS: SUCRALFATE 1 GM/10 ML CUP PO SCH ×3 (07:00→20:42)
[2016-08-12 08:07] VITALS: PULSE 51
[2016-08-12 08:38] VITALS: BP 153/90; PULSE 58; RESP 18; TEMP 98.8; O2SAT 97
--- NOTE | 2016-08-12 08:55 | HHI.PR ---
Subjective Remarks Follow up for abdominal pain, vomiting. The patient reports another episode of vomiting this morning. He states he was doing fairly well yesterday and was able to tolerate some oral intake. No BM since prior to arrival, described as loose. Denies fevers/chills. He had some right sided abdominal pain earlier today but this has now improved. Objective Vitals Vital Signs Date Time Temp Pulse Resp B/P Pulse Ox O2 Delivery O2 Flow Rate FiO2 08/12/16 08:38 98.8 58 18 153/90 97 08/12/16 08:07 51 08/12/16 04:25 98.1 48 19 140/75 96 08/11/16 23:16 98.2 49 19 143/80 97 08/11/16 21:03 20 08/11/16 20:30 98.0 65 20 140/85 96 08/11/16 16:46 98.2 63 20 133/85 97 08/11/16 12:02 98.2 70 22 167/94 96 I/O 08/11/16 08/11/16 08/11/16 08/12/16 08/12/16 08/12/16 07:00 15:00 23:00 07:00 15:00 23:00 Intake Total 200 ml Balance 200 ml Intake Oral 200 ml Result Diagram: 08/11/16 0507 08/11/16 0507 Imaging Last Impressions Abdomen/Pelvis CT [id number]/10/162155 Signed Impressions: Service Date/Time: Wednesday, August 10, 2016 22:08 - CONCLUSION: 1. No obstruction, inflammatory changes or other acute abnormality. 2. Fat- containing umbilical hernia unchanged. 3. L5 chronic appearing spondylolysis with grade one L5/S1 spondylolisthesis. Keyshawn Adhikari MD Abdomen X-Ray 08/10/16 0000 Signed Impressions: Service Date/Time: Wednesday, August 10, 2016 20:49 - CONCLUSION: Benign-appearing abdomen. No evidence of ileus. Keyshawn Adhikari MD Objective Remarks GENERAL: Well-nourished, well-developed middle aged male patient in [facility]. SKIN: Warm and dry. No rash. HEENT: Normocephalic. Atraumatic. Pupils equal and round. Mucous membranes pink and moist. NECK: Supple. Trachea midline. CARDIOVASCULAR: Regular rate and rhythm. S1, S2 noted. No murmur appreciated. RESPIRATORY: No accessory muscle use. Clear to auscultation. Breath sounds equal bilaterally. GASTROINTESTINAL: Abdomen soft, non-tender, nondistended. Normoactive bowel sounds x4. MUSCULOSKELETAL: No obvious deformities. Extremities without clubbing, cyanosis , or edema. NEUROLOGICAL: Awake and alert. No obvious cranial nerve deficits. Motor grossly within normal limits. Normal speech. PSYCHIATRIC: Appropriate mood and affect; insight and judgment normal. Medications and IVs Current Medications Medications (Trade) Dose Ordered Sig/Nessa Route Start Time Stop Time Status Last Admin (NS 1000 ml Inj) 1,000 ml @ 100 mls/hr Q10H IV 08/10/16 23:28 08/12/16 05:28 (NS Flush) 2 ml UNSCH PRN IV FLUSH 08/10/16 23:30 (NS Flush) 2 ml BID IV FLUSH 08/11/16 09:00 08/11/16 21:00 (Zofran Inj) 4 mg Q6H PRN IVP 08/10/16 23:30 (Narcan Inj) 0.4 mg UNSCH PRN IV 08/10/16 23:30 (Morphine Inj) 2 mg Q3H PRN IV PUSH 08/11/16 02:45 08/11/16 20:51 (Protonix) 40 mg DAILY PO 08/11/16 09:00 08/11/16 08:34 (Carafate Liq) 1 gm ACHS PO 08/11/16 11:00 08/12/16 07:00 (Catapres) 0.1 mg Q6H PRN PO 08/11/16 09:00 08/11/16 12:10 A/P Problem List: (1) HANS (acute kidney injury) ICD Code: N17.9 Status: Acute (2) Abdominal pain ICD Code: R10.9 Status: Acute (3) Dehydration ICD Code: E86.0 Status: Acute (4) Cyclical vomiting with nausea ICD Code: G43.A0 Status: Chronic Assessment and Plan 50-year-old male patient with PMH of asthma, hypertension, and cyclic vomiting syndrome, presents with a 2-3day history of nausea, vomiting, liquid stools, abdominal cramping after eating seafood salad about 2-3 days ago. Abdominal Pain, Intractable Nausea/Vomiting: RUQ/epigastric pain. Patient with multiple previous admissions for the same with extensive workup. Noncompliant with PPI and marijuana use. Reviewed records from previous hospitalizations: EGD 07/16/[address] Dickinson showed gastritis and LA Class B esophagitis with pathology confirming the same. Gastric emptying study shows rapid gastric emptying. Gallbladder ultrasound showed gallbladder sludge, with unremarkable HIDA scan. On this admission, reviewed CT abd/pelvis showed no obstruction, inflammatory changes or other acute abnormality and fat-containing umbilical hernia unchanged. Abdominal x-ray with benign-appearing abdomen and no evidence of ileus. Lipase and LFTs within normal limits. Continue supportive treatment with IVF, antiemetics as needed, Pain control with IV morphine Resumed PPI Started Carafate Recommended marijuana holiday, although the patient is not interested Diet as tolerated Acute kidney injury. Dehydration secondary to vomiting Reviewed: Creatinine currently 1.8, previously 1.04 on 07/18/16. Checked CPK, only minimally elevated Continue IVF and follow-up BMP Hold home HCTZ Hyperkalemia: Secondary to vomiting. Replace orally. Magnesium wnl. Hypertension: Chronic. Hold HCTZ. Clonidine as needed. DVT prophylaxis with SCDs Written by Tara Jimenez, acting as scribe for Dr. Joy on 08/12/16 at 10:28 This note was transcribed by scribAlbina ISIDRO. I, Dr. Vera Joy personally performed the history, physical exam, and medical decision making; and confirmed the accuracy of the information in the transcribed note. Authenticated by Dr. Vera Joy on 08/12/16 at 10:28 Problem Qualifiers (1) Abdominal pain: Qualified Code: R10.9 - Abdominal pain, unspecified location Tara Jimenez PA-C Aug 12, 2016 08:55 Vera Joy MD Aug 12, 2016 12:32
[2016-08-12] MEDS: PANTOPRAZOLE SOD 40 MG DELAYED RELEASE TAB PO SCH (08:56)
[2016-08-12] MEDS: SODIUM CHLORIDE 0.9% FLUSH 10 ML FLUSH IV FLUSH SCH ×2 (08:56→20:42)
[2016-08-12] MEDS: MORPHINE SULFATE 4 MG/ML INJ IV PUSH PRN (09:01)
[2016-08-12 10:52] LABS: AUTOMATED NEUTROPHIL # 5.8 TH/MM3 (1.8-7.7); BASOPHIL % 0.5 % (0.0-2.0); EOSINOPHIL # 0.1 TH/MM3 (0-0.4); EOSINOPHIL % 1.4 % (0.0-4.0); HEMATOCRIT 45.7 % (39.0-51.0); HEMO FLAGS DIFF FINAL; LYMPH % 21.7 % (9.0-44.0); LYMPHOCYTE # 1.9 TH/MM3 (1.0-4.8); MEAN CELL VOLUME 84.2 FL (80.0-100.0); MEAN CORPUSCULAR HGB CONC 33.3 % (32.0-36.0); MONO % 9.9 % (0.0-8.0); NEUT % 66.5 % (16.0-70.0); PLATELET COUNT 242 TH/MM3 (150-450); RED BLOOD COUNT 5.42 MIL/MM3 (4.50-5.90); RED CELL DISTRIBUTION WIDTH 14.7 % (11.6-17.2); WHITE BLOOD COUNT 8.7 TH/MM3 (4.0-11.0)
[2016-08-12 11:33] LABS: POTASSIUM 4.5 MEQ/L (3.5-5.1)
[2016-08-12 12:00] VITALS: BP 141/74; PULSE 84; RESP 21; TEMP 98.4; O2SAT 98
[2016-08-12 16:03] LABS: AMPHETAMINE, URINE NEG (NEG); BARBITURATES, URINE NEG (NEG); COCAINE, URINE NEG (NEG)
[2016-08-12 16:10] LABS: BLOOD, URINE NEG (NEG); COMMENT (UR) CULT NOT INDICATED; CULTURE IF INDICATED CULT NOT INDICATED; GLUCOSE,URINE NEG (NEG); KETONE, URINE NEG (NEG); NITRITE,URINE NEG (NEG); PH, URINE 6.5 (5.0-8.5); SQUAMOUS EPITHELIAL CELL URINE <1 /hpf (0-5); URINE COLOR YELLOW (YELLW/STRAW)
--- NOTE | 2016-08-12 16:46 | RADRPT ---
EXAM DATE/TIME: 08/12/2016 15:45 [facility] COMPARISON: CT ABDOMEN & PELVIS W/O CONTRAST, August 10, 2016, 22:08. INDICATIONS : Increased BUN and Creatinine. MEDICAL HISTORY : Hypertension. Asthma. Substance use. SURGICAL HISTORY : Hernia repair. Bilateral hand surgery. ENCOUNTER: Initial ACUITY: 1 day PAIN SCORE: 110 LOCATION: Bilateral flank MEASUREMENTS: RIGHT KIDNEY: 12.4 x 5.8 x 5.7 cm LEFT KIDNEY: 12.3 x 6.7 x 7.1 cm FINDINGS: RIGHT KIDNEY: Renal cortex is normal in thickness and echotexture. No hydronephrosis, stone, or mass. LEFT KIDNEY: Renal cortex is normal in thickness and echotexture. No hydronephrosis, stone, or mass. BLADDER: Within normal limits given the degree of distension. CONCLUSION: Unremarkable exam with no evidence of hydronephrosis. Ramon Rivera MD on August 12, 2016 at 16:43 Board Certified Radiologist. This report was verified electronically.
[2016-08-12 22:28] VITALS: PULSE 80
[2016-08-12 23:55] VITALS: BP 145/85; PULSE 75; RESP 20; TEMP 98.1; O2SAT 96
[2016-08-13] MEDS: MORPHINE SULFATE 4 MG/ML INJ IV PUSH PRN (00:07)
[2016-08-13] MEDS: SODIUM CHLOR 0.9% 1000 ML INJ 1,000 ML IV SCH ×2 (01:28→13:07)
[2016-08-13 03:36] VITALS: BP 141/82; PULSE 77; RESP 19; TEMP 98.3; O2SAT 96
[2016-08-13 08:00] VITALS: BP 156/87; PULSE 46; RESP 18; TEMP 98.7; O2SAT 96
[2016-08-13 08:02] LABS: BICARBONATE 28.6 MEQ/L (21.0-32.0); POTASSIUM 3.6 MEQ/L (3.5-5.1)
[2016-08-13] MEDS: SODIUM CHLORIDE 0.9% FLUSH 10 ML FLUSH IV FLUSH SCH (10:39)
[2016-08-13] MEDS: PANTOPRAZOLE SOD 40 MG DELAYED RELEASE TAB PO SCH (10:39)
[2016-08-13] MEDS: SUCRALFATE 1 GM/10 ML CUP PO SCH ×2 (10:39→13:07)
[2016-08-13 12:00] VITALS: BP 155/87; PULSE 51; RESP 18; TEMP 98.9; O2SAT 98
--- NOTE | 2016-08-13 13:40 | HHI.DS ---
Discharge Summary Admission Date Aug 10, 2016 at 11:34 pm Discharge Date: Aug 13, 2016 Admitting Diagnosis abdominal pain. Cyclical vomiting and nausea. Acute renal injury (1) Nausea & vomiting ICD Code: R11.2 Diagnosis: Principal (2) HANS (acute kidney injury) ICD Code: N17.9 Diagnosis: Principal (3) Abdominal pain ICD Code: R10.9 Diagnosis: Secondary (4) Dehydration ICD Code: E86.0 Diagnosis: Secondary (5) Cyclical vomiting with nausea ICD Code: G43.A0 Diagnosis: Secondary Procedures None. Brief History - From Admission This is a 50-year-old [place] male patient with past medical history which includes asthma which she uses rescue inhaler, hypertension treated with hydrochlorothiazide and cyclic vomiting syndrome. Patient reports he ate seafood salad about 2-3 days ago. Reports nausea, vomiting and liquid stools for the past 2-3 days. Nausea/vomiting/diarrhea associated with diaphoresis hot flashes and cold sweats- which have resolved at this time Patient reports that he started having severe cramping abd pain which started yesterday. The abdominal pain is generalized through out abdomen. Abdominal pain resolved after morphine IV. Vomiting improved with Zofran and bowel rest. Patient does report red color to vomit denies coffee ground appearance to emesis. Denies black tarry stool or red blood in stool. Per ER documentation: EGD showed gastritis and esophagitis. Gastric emptying study shows rapid gastric emptying. Patient denies fevers chest pain or shortness of breath. CBC/BMP: 08/12/16 1035 08/13/16 0700 Significant Findings Laboratory Tests Test 08/10/16 08/11/16 08/12/16 08/12/16 20:15 05:07 10:35 15:20 White Blood Count 18.1 TH/MM3 15.0 TH/MM3 (4.0-11.0) (4.0-11.0) Red Blood Count 6.12 MIL/MM3 (4.50-5.90) Hematocrit 51.1 % (39.0-51.0) Neutrophils (%) (Auto) 81.5 % 79.7 % (16.0-70.0) (16.0-70.0) Neutrophils # (Auto) 14.8 TH/MM3 12.0 TH/MM3 (1.8-7.7) (1.8-7.7) Monocytes # (Auto) 1.0 TH/MM3 1.5 TH/MM3 (0-0.9) (0-0.9) Sodium Level 135 MEQ/L (136-145) Chloride Level 89 MEQ/L 97 MEQ/L (98-107) (98-107) Carbon Dioxide Level 34.4 MEQ/L 32.3 MEQ/L 33.0 MEQ/L (21.0-32.0) (21.0-32.0) (21.0-32.0) Blood Urea Nitrogen 26 MG/DL (7-18) 29 MG/DL (7-18) 20 MG/DL (7-18) Creatinine 1.75 MG/DL 1.82 MG/DL 1.90 MG/DL (0.60-1.30) (0.60-1.30) (0.60-1.30) Estimat Glomerular Filtration 50 ML/MIN (>89) 48 ML/MIN (>89) 46 ML/MIN (>89) Rate Random Glucose 107 MG/DL (74-106) Calcium Level 10.7 MG/DL (8.5-10.1) Total Protein 8.8 GM/DL (6.4-8.2) Monocytes (%) (Auto) 10.0 % 9.9 % (0.0-8.0) (0.0-8.0) Potassium Level 3.1 MEQ/L (3.5-5.1) Total Creatine Kinase 315 U/L (39-308) Urine Cannabinoids Screen POS (NEG) Test 08/13/16 07:00 Chloride Level 108 MEQ/L (98-107) Estimat Glomerular Filtration 75 ML/MIN (>89) Rate Imaging Last Impressions Renal Ultrasound 08/12/16 0000 Signed Impressions: Service Date/Time: Friday, August 12, 2016 15:45 - CONCLUSION: Unremarkable exam with no evidence of hydronephrosis. Ramon Rivera MD Abdomen/Pelvis CT 08/10/16 8446 Signed Impressions: Service Date/Time: Wednesday, August 10, 2016 22:08 - CONCLUSION: 1. No obstruction, inflammatory changes or other acute abnormality. 2. Fat- containing umbilical hernia unchanged. 3. L5 chronic appearing spondylolysis with grade one L5/S1 spondylolisthesis. Keyshawn Adhikari MD Abdomen X-Ray 08/10/16 0000 Signed Impressions: Service Date/Time: Wednesday, August 10, 2016 20:49 - CONCLUSION: Benign-appearing abdomen. No evidence of ileus. Keyshawn Adhikari MD PE at Discharge GENERAL: Well-nourished, well-developed middle aged male patient in [facility]. SKIN: Warm and dry. No rash. HEENT: Normocephalic. Atraumatic. Pupils equal and round. Mucous membranes pink and moist. NECK: Supple. Trachea midline. CARDIOVASCULAR: Regular rate and rhythm. S1, S2 noted. No murmur appreciated. RESPIRATORY: No accessory muscle use. Clear to auscultation. Breath sounds equal bilaterally. GASTROINTESTINAL: Abdomen soft, non-tender, nondistended. Normoactive bowel sounds x4. MUSCULOSKELETAL: No obvious deformities. Extremities without clubbing, cyanosis , or edema. NEUROLOGICAL: Awake and alert. No obvious cranial nerve deficits. Motor grossly within normal limits. Normal speech. PSYCHIATRIC: Appropriate mood and affect; insight and judgment normal. Pt update on day of discharge Follow up for nausea/vomiting, abdominal pain, HANS. The patient reports feeling much better today. He's able to tolerate his clear liquid diet and will be trying solid foods for lunch. Denies abdominal pain, nausea/vomiting overnight. Denies diarrhea. Denies any other medical complaints at this time. Hospital Course 50-year-old male patient with PMH of asthma, hypertension, and cyclic vomiting syndrome, presents with a 2-3day history of nausea, vomiting, liquid stools, abdominal cramping after eating seafood salad about 2-3 days ago. Abdominal Pain, Intractable Nausea/Vomiting: RUQ/epigastric pain. Patient with multiple previous admissions for the same with extensive workup. Noncompliant with PPI and marijuana use.Reviewed records from previous hospitalizations: EGD 07/16/[address] Dickinson showed gastritis and LA Class B esophagitis with pathology confirming the same. Gastric emptying study shows rapid gastric emptying. Gallbladder ultrasound showed gallbladder sludge, with unremarkable HIDA scan. On this admission, reviewed CT abd/pelvis showed no obstruction, inflammatory changes or other acute abnormality and fat-containing umbilical hernia unchanged. Abdominal x-ray with benign-appearing abdomen and no evidence of ileus. Lipase and LFTs within normal limits. Given supportive treatment with IVF, antiemetics as needed, Pain control with IV morphine, Resumed PPI, Started Carafate. Recommended marijuana holiday, although the patient is not interested. Started with clear liquid diet, patient tolerated well, advanced to regular. Acute kidney injury. Dehydration secondary to vomiting. Reviewed: Creatinine currently 1.8, previously 1.04 on 07/18/16. Checked CPK, only minimally elevated. Renal U/S unremarkable. Discontinued home HCTZ. Continued IVF and monitored BMP , much improved today, Cr 1.2 at discharge. Hyperkalemia: Secondary to vomiting. Replace orally. Magnesium wnl. Resolved. Hypertension: Chronic. Discontinued patient's HCTZ with HANS as above. Clonidine as needed. Discharged on Norvasc 10mg daily. I spent 35 minutes [id number] with the patient or on the davis discussing the patient's disposition, prognosis, and plan of care with him. Over half the time spent was devoted to extensively counseling the patient regarding his diagnosis, prevention, and treatment of his symptoms. Written by Tara Jimenez, acting as scribe for Dr. Flores on 08/13/16 at 13: 35. This note was transcribed by scribe [Tara Jimenez]. I, Dr. Miles Flores personally performed the history, physical exam, and medical decision making; and confirmed the accuracy of the information in the transcribed note. Authenticated by Dr. Miles Flores on 08/15/16 at 08:39. Pt Condition on Discharge: Stable Discharge Disposition: Discharge Home Discharge Time: > 30 minutes Discharge Instructions DIET: Follow Instructions for: Heart Healthy Diet, Soft Diet Follow up Referrals: Gastroenterology - 1 Week with Alejandro Dickinson MD PCP Follow-up - [facility] New Medications: Amlodipine (Amlodipine) 10 Mg Tab 10 MG PO DAILY Blood Pressure Management #30 Ref 0 TAB Ondansetron Odt (Ondansetron Odt) 4 Mg Tab 4 MG SL Q6HR PRN Nausea/Vomiting #30 Ref 0 TAB Sucralfate Liq (Sucralfate Liq) 1 Gm/10 Ml Jadyn 1 GM PO TIDAC esophagitis #210 ML Continued Medications: Nitroglycerin SL (Nitrostat SL) 0.4 Mg Subl 0.4 MG SL Q5M PRN DISCOMFORT #20 TAB Pantoprazole (Protonix) 40 Mg Tab 40 MG PO DAILY Reflux #30 Ref 0 TAB (This prescription has been renewed) Discontinued Medications: Hydrochlorothiazide (Hydrochlorothiazide) 12.5 Mg Cap 10 MG PO DAILY #60 Ref 0 CAP Tara Jimenez PA-C Aug 13, 2016 13:40 Miles Flores MD August 15, 2016 08:44
[2016-08-13] MEDS ORDERED: SUCR1S PO (13:43)
[2016-08-13] MEDS ORDERED: PROT40TA PO (13:43)
[2016-08-13] MEDS ORDERED: ONDA4TAB7 SL (13:43)
[2016-08-13] MEDS ORDERED: AMLO10TA2 PO (13:43)
== END 2016-08-13 15:12 | disposition home or self-care (01) ==
LOC: NEPD 20:07 → NEDA 23:34 → NEPHCDU 08-11 01:17
PROVIDERS: ADMIT Internal Medicine; ATTEND Internal Medicine
DX: R10.11 Right upper quadrant pain (principal); R10.13 Epigastric pain; G43.A1 Cyclical vomiting, in migraine, intractable; E86.0 Dehydration; N17.9 Acute kidney failure, unspecified; E87.5 Hyperkalemia; J45.909 Unspecified asthma, uncomplicated; I10 Essential (primary) hypertension; F17.200 Nicotine dependence, unspecified, uncomplicated; Z91.19 Patient's noncompliance with other medical treatment and regimen
CPT/HCPCS: 74020; 74176; 76775; 80048; 80053; 80307; 81001; 82550; 82552; 83690; 83735; 85025; 85610; 85730; 96361; 96374; 96375; 99285; C9113; G0378; J1200; J1885; J2270; J2405; J2765; J7030